=== PATIENT | female | born 1940 | race Caucasian/White ===

== ENCOUNTER 2016-08-11 22:11 | Emergency (ER) | payer MEDICARE, OTHER ==
[2016-08-11] MEDS ORDERED: Ondansetron INJ* 2 MG/ML VIAL IV ONE (22:54)
[2016-08-11] MEDS ORDERED: NS 0.9% 1000 ML* 1,000 ML IV ONE (22:54)
[2016-08-11] MEDS ORDERED: methylPREDNISolone 125 MG* 2 ML VIAL IV ONE (22:54)
[2016-08-11] MEDS ORDERED: Albuterol/Ipratropium NEB.SOL* Albuterol 2.5 MG/Ipratropium 0.5 MG 3 ML INH ONE (22:55)
--- NOTE | 2016-08-11 23:17 | RAD ---
INDICATION: Syncope. COMPARISON: Comparison is made with a prior chest x-ray study from April 17, 2014. TECHNIQUE: A portable view of the chest was obtained. FINDINGS: Cardiac and mediastinal contours appear to be within normal limits. The lungs are clear. No pleural effusion is seen. IMPRESSION: NO EVIDENCE FOR ACUTE DISEASE.
--- NOTE | 2016-08-11 23:56 | ED ---
Candida Self Erika, scribed for Anamika Tomlin MD on 08/11/16 at 2255 . Syncope/Near Syncope - HPI Summary HPI Summary: Patient is a 76-year-old female presenting to the ED with a CC of syncopal episode today. She reports that she has had cold-like symptoms for 3 days, including chills, cough, chest congestion, and SOB. Yesterday, pt was seen at [facility], and was started on a Z pack. They did not do a flu swab at that time. This morning, pt developed worse SOB and cough, and developed lightheadedness and nausea. Pt treated symptoms with her albuterol inhaler. Tonight, pt was in bed and was experiencing restless leg, so she got up to get some medication. She developed worse lightheadedness, and then remembers waking up on the ground. She denies worse SOB before this episode. Pt denies head injury - she states she fell onto her back but did not hit her head. Pt denies abdominal pain and vomiting. Hx asthma, HTN. FHx PA. Pt lives alone, although her sister lives nearby, and does not smoke, drink, or use illicit drugs. PCP Dr. Bob. - History Of Current Complaint Chief Complaint: EDSyncope Time Seen by Provider: 08/11/16 22:32 Hx Obtained From: Patient, Family/[employer] - Sister Onset/Duration: Gradual Onset, Lasting Minutes, Resolved Timing: Constant Context: Unwitnessed, Loss Of Consciousness Activity At Onset: Exertion - walking Aggravating Factor(s): Position Change - supine to erect Alleviating Factor(s): Spontaneous Resolution Associated Signs And Symptoms: Lightheadedness - Allergies/Home Medications Allergies/Adverse Reactions: Allergies Allergy/AdvReac Type Severity Reaction Status Date / Time Bee Venom Allergy Severe Anaphylatic Verified 01/22/15 07:37 Shock Cefuroxime Allergy Intermediate Hives Verified 01/22/15 07:37 Chocolate Allergy Intermediate Hives Verified 01/22/15 07:37 Ciprofloxacin Allergy Intermediate Hives Verified 01/22/15 07:37 Diazepam [From Valium] Allergy Intermediate Hallucinati Verified 01/22/15 07:37 ons Diltiazem Allergy Intermediate Hives Verified 01/22/15 07:37 Ezetimibe [From Zetia] Allergy Intermediate Hives Verified 01/22/15 07:37 Niacin [From Niaspan] Allergy Intermediate Hives Verified 01/22/15 07:37 Pravastatin [From Pravachol] Allergy Intermediate Hives Verified 01/22/15 07:37 Valsartan [From Diovan] Allergy Intermediate Hives Verified 01/22/15 07:37 Wheat Bran Allergy Intermediate Hives Verified 01/22/15 07:37 almonds Allergy Anaphylatic Uncoded 08/11/16 22:22 Shock PMH/Surg Hx/FS Hx/Imm Hx Endocrine/Hematology History: Denies: Hx Diabetes, Hx Systemic Lupus Erythematosus, Hx Anemia Cardiovascular History: Reports: Hx Hypertension, Other Cardiovascular Problems/ Disorders - "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 Denies: Hx Jaundice History: Denies: Hx Dialysis, Hx Renal Disease Musculoskeletal History: Reports: Hx Arthritis, Hx Rheumatoid Arthritis, Hx Osteoporosis Sensory History: Reports: Hx Cataracts - surgery completed in October, Hx Contacts or Glasses Opthamlomology History: Reports: Hx Cataracts - surgery completed in October, Hx Contacts or Glasses - Cancer History Hx Chemotherapy: No Hx Radiation Therapy: No - Surgical History Surgery Procedure, Year, and Place: B hip replacement (december 2014). tonsillectomy (194). multiple wrist surgeries (2012) Infectious Disease History: No Infectious Disease History: Denies: Traveled Outside the [place] in Last 30 Days - Family History Known Family History: Positive: Cardiac Disease - [place] - brother - Social History Lives: Alone Alcohol Use: None Hx Substance Use: No Substance Use Type: Reports: None Hx Tobacco Use: Yes Smoking Status (MU): Former Smoker Have You Smoked in the Last Year: No Review of Systems Positive: Chills Cardiovascular: Other - chest congestion Positive: Shortness Of Breath, Cough Positive: Nausea. Negative: Vomiting Neurological: Other - lightheadedness Positive: Syncope All Other Systems Reviewed And Are Negative: Yes Physical Exam Triage Information Reviewed: Yes Vital Signs On Initial Exam: Initial Vitals Temp Pulse Resp BP Pulse Ox 96.7 F 64 16 112/60 100 08/11/16 22:22 08/11/16 22:22 08/11/16 22:22 08/11/16 22:22 08/11/16 22:22 Vital Signs Reviewed: Yes Appearance: Positive: Well-Appearing, No Pain Distress Skin: Positive: Warm, Skin Color Reflects Adequate Perfusion, Dry Eyes: Positive: EOMI, KAREN ENT: Positive: Pharynx normal, TMs normal Neck: Positive: Supple, Nontender Respiratory/Lung Sounds: Positive: Clear to Auscultation, Breath Sounds Present. Negative: Rales, Rhonchi, Wheezes Cardiovascular: Positive: RRR, Other - No gallops. Negative: Murmur, Rub Abdomen Description: Positive: Nontender, Soft, Other: - No rebound. Negative: Distended, Guarding Bowel Sounds: Positive: Present Musculoskeletal: Positive: Other - LARRY, no edema Neurological: Positive: Sensory/Motor Intact, Alert, Oriented to Person Place, Time, Other - CN II-XII intact Psychiatric: Positive: Affect/Mood Appropriate Diagnostics - Vital Signs Vital Signs Temp Pulse Resp BP Pulse Ox 08/11/16 22:22 96.7 F 64 16 112/60 100 - Laboratory Lab Statement: Any lab studies that have been ordered have been reviewed, and results considered in the medical decision making process. - Radiology CXR Xray Interpretation: No Acute Changes Radiology Interpretation Completed By: ED Physician, Radiologist - EKG 22:30 Cardiac Rate: NL - at 60 bpm EKG Rhythm: Sinus Rhythm EKG Interpretation: LVH. Atrial enlargement EKG Comparison: No Significant Change - from 11/27/2014 Course/Dx Course Of Treatment: pt awaiting labs, signed out to Dr. Rothman - Diagnoses Provider Diagnoses: Syncope Discharge - Discharge Plan Condition: Stable Disposition: OTHER Discharge Disposition Comment: Signed out to Dr. Rothman pending lab work Referrals: Dallas Bob MD [Primary Care Provider] - The documentation as recorded by the Candida trinidad Erika accurately reflects the service I personally performed and the decisions made by me, Anamika Tomlin MD.
[2016-08-12 00:21] LABS: Hematocrit 41 % (35-47); Hemoglobin 13.6 g/dl (12.0-16.0); Mean Corpuscular HGB Conc 34 g/dl (31-36); Mean Corpuscular Hemoglobin 31 pg (27-31); Mean Corpuscular Volume 92 fL (80-97); Mean Platelet Volume 8 um3 (7.4-10.4); Red Blood Count 4.42 10^6/ul (4.0-5.4); Red Cell Distribution Width 13 % (10.5-15); White Blood Count 2.6 10^3/ul (3.5-10.8)
[2016-08-12 00:28] LABS: Add Diff/Slide Review? Slide Review Added; Albumin 3.8 g/dL (3.2-5.2); BUN/Creatinine Ratio 18.7 (8-20); Calcium 8.8 mg/dL (8.6-10.3); Comments Flag Yes; EGFR African American 54.3 (>60); EGFR Non-African American 42.2 (>60); Globulin 2.9 g/dL (2-4); Magnesium 1.8 mg/dL (1.9-2.7); Total Bilirubin 0.4 mg/dL (0.2-1.0); Total Protein 6.7 g/dL (6.4-8.9)
[2016-08-12 00:30] LABS: Troponin I 0.01 ng/mL (<0.04)
[2016-08-12 00:40] LABS: Potassium 3.7 mmol/L (3.5-5.0)
[2016-08-12 01:01] LABS: TSH (Thyroid Stimulating Horm) 2.35 mcIU/mL (0.34-5.60)
[2016-08-12 01:27] VITALS: BP 125/70
--- NOTE | 2016-10-14 23:14 | ED ---
I, Luis Sampson, scribed for Juan J Rothman MD on 08/12/16 at 0123 . Progress - Progress Note Progress Note: Signout from Dr. Tomlin. Waiting for blood work results. Course/Dx - Diagnoses Provider Diagnoses: Influenza The documentation as recorded by the scribeAdrián Benjamin accurately reflects the service I personally performed and the decisions made by me, Juan J Rothman MD.
== END 2016-08-12 01:42 ==
LOC: ED 22:11
DX: R55 Syncope and collapse (principal); R05 Cough; R06.02 Shortness of breath; Z87.891 Personal history of nicotine dependence; R42 Dizziness and giddiness
CPT/HCPCS: 36415; 71010; 80053; 83605; 83735; 84443; 84484; 85025; 87502; 93005; 99284; A9270-GY; J2405; J2930

== ENCOUNTER 2019-05-09 19:39 | Inpatient (IN) | payer MEDICARE, OTHER ==
[2019-05-09 20:27] LABS: ABS Eosinophils 0.1 10^3/ul (0-0.6); ABS Lymphocytes 0.8 10^3/ul (1.0-4.8); ABS Monocytes 0.4 10^3/ul (0-0.8); ABS Neutrophils 4.6 10^3/ul (1.5-7.7); Eosinophil % 1.6 %; Hematocrit 41 % (35-47); Hemoglobin 13.8 g/dL (12.0-16.0); Lymphocyte % 13.2 %; Mean Corpuscular HGB Conc 34 g/dL (31-36); Mean Corpuscular Hemoglobin 33 pg (27-31); Mean Corpuscular Volume 97 fL (80-97); Mean Platelet Volume 7.4 fL (7.4-10.4); Platelet Count 216 10^3/uL (150-450); Red Blood Count 4.21 10^6 /uL (3.70-4.87); Red Cell Distribution Width 13 % (10-15)
[2019-05-09 20:47] LABS: Albumin 4.2 g/dL (3.2-5.2); Albumin/Globulin Ratio 1.7 (1-3); BUN/Creatinine Ratio 20.2 (8-20); Calcium 9.1 mg/dL (8.6-10.3); EGFR African American 48.1 (>60); EGFR Non-African American 39.8 (>60); Globulin 2.5 g/dL (2-4); Potassium 4.1 mmol/L (3.5-5.0); Total Bilirubin 0.5 mg/dL (0.2-1.0); Total Protein 6.7 g/dL (6.4-8.9); Troponin I 0.01 ng/mL (<0.04)
[2019-05-09 20:48] LABS: Activated Partial Thrombo Time 28.7 seconds (26.0-38.0); INR 0.9 (0.82-1.09)
--- NOTE | 2019-05-09 20:56 | ED ---
Neurological HPI - HPI Summary HPI Summary: Patient is an 78 y/o F presenting to the ED via EMS for a chief complaint of neurological deficit. Patient has sudden onset aphasia at approximately 14:20 on 05/09/19. Patient states she was asymptomatic before later going to [facility]. At that time, patient declined going to the ED. Patient states she has rectal bleeding, blood in the stool, and pallor. Patient denies taking blood thinners. - History of Current Complaint Chief Complaint: EDNeurologicalDeficit Stated Complaint: BLEEDING FROM RECTUM PER PT Time Seen by Provider: 05/09/19 19:54 Hx Obtained From: Patient Onset/Duration: Sudden Onset, Resolved Timing: Sudden Onset Onset Severity: Moderate Current Severity: Moderate Neurological Deficit Location: Facial - Aphasia Pain Intensity: 0 Pain Scale Used: 0-10 Numeric Character: Impaired Speech - Aphasia, Other: - Positive rectal bleeding, blood in stool, and pallor Aggravating: Nothing Alleviating: Nothing Associated Signs and Symptoms: Positive: Impaired Speech - Aphasia - Allergy/Home Medications Allergies/Adverse Reactions: Allergies Allergy/AdvReac Type Severity Reaction Status Date / Time bee venom protein (honey bee) Allergy Unknown Verified 05/09/19 20:21 Reaction Details cefuroxime Allergy Hives Verified 05/09/19 20:21 chocolate flavor Allergy Hives Verified 05/09/19 20:21 ciprofloxacin [From Cipro] Allergy Hives Verified 05/09/19 20:21 diazepam Allergy Hallucinati Verified 05/09/19 20:21 ons diltiazem Allergy Hives Verified 05/09/19 20:21 ezetimibe Allergy Hives Verified 05/09/19 20:21 niacin Allergy Hives Verified 05/09/19 20:23 pravastatin Allergy Hives Verified 05/09/19 20:23 valsartan Allergy Hives Verified 05/09/19 20:23 wheat Allergy Hives Verified 05/09/19 20:23 almonds Allergy Anaphylatic Uncoded 08/11/16 22:22 Shock Home Medications: Home Medications Albuterol inh POWDER (NF) [Proair Respiclick] 2 puff INH DAILY 05/09/19 [ History Confirmed 05/09/19] Aspirin EC TAB* [Ecotrin EC Low Dose 81 MG*] 81 mg PO DAILY 05/09/19 [History Confirmed 05/09/19] Magnesium Oxide TAB* [MagOx 400 TAB*] 400 mg PO DAILY 05/09/19 [History Confirmed 05/09/19] Metoprolol Succinate XL TAB* [Toprol XL TAB*] 50 mg PO BID 05/09/19 [History Confirmed 05/09/19] Omeprazole CAP (NF) [Prilosec CAP* 20 MG] 20 mg PO DAILY 05/09/19 [History Confirmed 05/09/19] Vitamin B Complex [Super B-50 Complex] 1 cap PO DAILY 05/09/19 [History Confirmed 05/09/19] amLODIPine TAB* [Norvasc 5 mg TAB*] 7.5 mg PO DAILY 05/09/19 [History Confirmed 05/09/19] PMH/Surg Hx/FS Hx/Imm Hx Previously Healthy: Yes Endocrine/Hematology History: Denies: Hx Diabetes, Hx Systemic Lupus Erythematosus, Hx Anemia Cardiovascular History: Reports: Hx Hypertension, Other Cardiovascular Problems/ Disorders - "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 Denies: Hx Jaundice History: Denies: Hx Dialysis, Hx Renal Disease Musculoskeletal History: Reports: Hx Arthritis, Hx Rheumatoid Arthritis, Hx Osteoporosis Sensory History: Reports: Hx Cataracts - surgery completed in October, Hx Contacts or Glasses Denies: Hx Legally Blind, Hx Deafness Opthamlomology History: Reports: Hx Cataracts - surgery completed in October, Hx Contacts or Glasses Denies: Hx Legally Blind EENT History: Denies: Hx Deafness - Cancer History Hx Chemotherapy: No Hx Radiation Therapy: No - Surgical History Surgical History: Yes Surgery Procedure, Year, and Place: B hip replacement (december 2014). tonsillectomy (1943). multiple wrist surgeries (2012) Infectious Disease History: No Infectious Disease History: Denies: Traveled Outside the [place] in Last 30 Days - Family History Known Family History: Positive: Cardiac Disease - [place] - brother Family History: Reviewed and Non-contributory - Social History Occupation: Retired Alcohol Use: None Alcohol Amount: approx 2-3 drinks daily Hx Substance Use: No Substance Use Type: Reports: None Hx Tobacco Use: Yes Smoking Status (MU): Former Smoker Have You Smoked in the Last Year: No Review of Systems Positive: Other - Positive pallor Positive: Other - Positive blood in stool and rectal bleeding Neurological: Other - Positive aphasia, resolved All Other Systems Reviewed And Are Negative: Yes Physical Exam - Summary Physical Exam Summary: Constitutional: Well-developed, Well-nourished, Alert. (-) Distressed Skin: Warm, Dry HENT: Normocephalic; Atraumatic Eyes: Conjunctiva normal Neck: Musculoskeletal ROM normal neck. (-) JVD, (-) Stridor, (-) Tracheal deviation Cardio: Rhythm regular, rate normal, Heart sounds normal; Intact distal pulses; Radial pulses are 2+ and symmetric. (-) Murmur Pulmonary/Chest wall: Effort normal. (-) Respiratory distress, (-) Wheezes, (-) Rales Abd: Soft, (-) tenderness, (-) Distension, (-) Guarding, (-) Rebound. No abdominal pain. Bedside ultrasound shows no AAA. Musculoskeletal: (-) Edema Lymph: (-) Cervical adenopathy Neuro: Alert, Oriented x3 Psych: Mood and affect Normal. Stroke Scale: 0. Triage Information Reviewed: Yes Vital Signs On Initial Exam: Initial Vitals Temp Pulse Resp BP Pulse Ox 96.9 F 90 20 196/97 100 05/09/19 19:41 05/09/19 19:41 05/09/19 19:41 05/09/19 19:41 05/09/19 19:41 Vital Signs Reviewed: Yes - Deshaun Coma Scale Best Eye Response: 4 - Spontaneous Best Motor Response: 6 - Obeys Commands Best Verbal Response: 5 - Oriented Coma Scale Total: 15 Procedures - Sedation Patient Received Moderate/Deep Sedation with Procedure: No Diagnostics - Vital Signs Vital Signs Temp Pulse Resp BP Pulse Ox 05/09/19 20:08 98 05/09/19 20:06 21 163/84 05/09/19 19:41 96.9 F 90 20 196/97 100 - Laboratory Lab Results: Lab Results 05/09/19 05/09/19 05/09/19 Range/Units 20:05 20:20 20:20 WBC 6.0 (3.5-10.8) 10^3/uL RBC 4.21 (3.70-4.87) 10^6 /uL Hgb 13.8 (12.0-16.0) g/dL Hct 41 (35-47) % MCV 97 (80-97) fL MCH 33 H (27-31) pg MCHC 34 (31-36) g/dL RDW 13 (10-15) % Plt Count 216 (150-450) 10^3/uL MPV 7.4 (7.4-10.4) fL Neut % (Auto) 77.7 % Lymph % (Auto) 13.2 % [place] % (Auto) 7.2 % Eos % (Auto) 1.6 % Baso % (Auto) 0.3 % Absolute Neuts (auto) 4.6 (1.5-7.7) 10^3/ul Absolute Lymphs (auto) 0.8 L (1.0-4.8) 10^3/ul Absolute Monos (auto) 0.4 (0-0.8) 10^3/ul Absolute Eos (auto) 0.1 (0-0.6) 10^3/ul Absolute Basos (auto) 0.0 (0-0.2) 10^3/ul Absolute Nucleated RBC 0.0 10^3/ul Nucleated RBC % 0.0 INR (Anticoag Therapy) 0.90 (0.82-1.09) APTT 28.7 (26.0-38.0) seconds Sodium (135-145) mmol/L Potassium (3.5-5.0) mmol/L Chloride (101-111) mmol/L Carbon Dioxide (22-32) mmol/L Anion Gap (2-11) mmol/L BUN (6-24) mg/dL Creatinine (0.51-0.95) mg/dL Est GFR ( Amer) (>60) Est GFR (Non-Af Amer) (>60) BUN/Creatinine Ratio (8-20) Glucose (70-100) mg/dL POC Glucose (mg/dL) 135 H (70-100) mg/dL Lactic Acid (0.5-2.0) mmol/L Calcium (8.6-10.3) mg/dL Total Bilirubin (0.2-1.0) mg/dL AST (13-39) U/L ALT (7-52) U/L Alkaline Phosphatase (34-104) U/L Troponin I (<0.04) ng/mL Total Protein (6.4-8.9) g/dL Albumin (3.2-5.2) g/dL Globulin (2-4) g/dL Albumin/Globulin Ratio (1-3) Triglycerides mg/dL Cholesterol mg/dL LDL Cholesterol mg/dL HDL Cholesterol mg/dL 05/09/19 05/09/19 Range/Units 20:20 20:20 WBC (3.5-10.8) 10^3/uL RBC (3.70-4.87) 10^6 /uL Hgb (12.0-16.0) g/dL Hct (35-47) % MCV (80-97) fL MCH (27-31) pg MCHC (31-36) g/dL RDW (10-15) % Plt Count (150-450) 10^3/uL MPV (7.4-10.4) fL Neut % (Auto) % Lymph % (Auto) % [place] % (Auto) % Eos % (Auto) % Baso % (Auto) % Absolute Neuts (auto) (1.5-7.7) 10^3/ul Absolute Lymphs (auto) (1.0-4.8) 10^3/ul Absolute Monos (auto) (0-0.8) 10^3/ul Absolute Eos (auto) (0-0.6) 10^3/ul Absolute Basos (auto) (0-0.2) 10^3/ul Absolute Nucleated RBC 10^3/ul Nucleated RBC % INR (Anticoag Therapy) (0.82-1.09) APTT (26.0-38.0) seconds Sodium 137 (135-145) mmol/L Potassium 4.1 (3.5-5.0) mmol/L Chloride 103 (101-111) mmol/L Carbon Dioxide 22 (22-32) mmol/L Anion Gap 12 H (2-11) mmol/L BUN 26 H (6-24) mg/dL Creatinine 1.29 H (0.51-0.95) mg/dL Est GFR ( Amer) 48.1 (>60) Est GFR (Non-Af Amer) 39.8 (>60) BUN/Creatinine Ratio 20.2 H (8-20) Glucose 179 H (70-100) mg/dL POC Glucose (mg/dL) (70-100) mg/dL Lactic Acid 1.5 (0.5-2.0) mmol/L Calcium 9.1 (8.6-10.3) mg/dL Total Bilirubin 0.50 (0.2-1.0) mg/dL AST 27 (13-39) U/L ALT 21 (7-52) U/L Alkaline Phosphatase 124 H (34-104) U/L Troponin I 0.01 (<0.04) ng/mL Total Protein 6.7 (6.4-8.9) g/dL Albumin 4.2 (3.2-5.2) g/dL Globulin 2.5 (2-4) g/dL Albumin/Globulin Ratio 1.7 (1-3) Triglycerides 146 mg/dL Cholesterol 254 mg/dL LDL Cholesterol 131 mg/dL HDL Cholesterol 94.0 mg/dL Result Diagrams: 05/10/19 06:13 05/10/19 06:13 Lab Statement: Any lab studies that have been ordered have been reviewed, and results considered in the medical decision making process. - CT Brain CT CT Interpretation Completed By: Radiologist Summary of CT Findings: Brain CT IMPRESSION: 1. No acute intracranial pathology. ASPECTS score 10. 2. Other chronic findings, as above. Reviewed by ED physician. - EKG 20:05 Cardiac Rate: NL - 76 BPM EKG Rhythm: Sinus Rhythm ST Segment: Normal Ectopy: None Summary of EKG Findings: EKG at 20:05 reveals 76 BPM with normal sinus rhythm, no STEMI. Reviewed and interpreted by ED physician. NIH Scale - NIH Scale Level of Consciousness: Alert/Keenly Responsive Ask Patient the Month and His/Her Age: Both Correct Ask Pt to Open/Close Eyes and Process Consultant/Release Non-Paretic Hand: Both Correctly Best Gaze (Only Horizontal Eye Movement): Normal Visual Field Testing: No Visual Loss Facial Paresis-Pt to Smile & Close Eyes or Grimace Symmetry: Normal/Symmetrical Motor Function - Right Arm: No Drift-Holds 10 Seconds Motor Function - Left Arm: No Drift-Holds 10 Seconds Motor Function - Right Leg: No Drift-Holds 10 Seconds Motor Function - Left Leg: No Drift-Holds 10 Seconds Limb Ataxia-Must be out of Proportion to Weakness Present: Absent Sensory (Use Pinprick to Test Arms/Legs/Trunk/Face): Normal Best Language (Describe Picture, Name Items): No Aphasia Dysarthria (Read Several Words): Normal Extinction and Inattention: No Abnormality Total Score: 0 Re-Evaluation - Re-Evaluation First Re-Evaluation Time: 20:58 Change: Unchanged Comment: At 20:58, patient is debating on staying because she has animals at home. Giving the patient time to think about it, will come back later and reassess. Course/Dx - Course Course Of Treatment: Patient is here with a GI bleed. Patient had an episode of aphasia at 1420 so a code cox was called from triage. Patient had [place] 0 upon my exam did have a negative CT head. Patient blood performed which showed no evidence of anemia. Patient did have melena on exam. Given her GI complaint, patient was admitted hospital - Diagnoses Provider Diagnoses: Chest pain During the Visit The Following Alert/Code Occurred: Code [place] - At 19:50, CODE [place] IS CALLED. At 19:51, I assessed the patient. At 19:53, patient is taken to CT. - Physician Notifications Discussed Care Of Patient With: Cherelle Hilton - At 21:30, Dr. Hilton accepts the patient for admission to [facility] for a diagnosis of chest pain. Time Discussed With Above Provider: 21:30 Instructed by Provider To: Admit As Inpatient - Critical Care Time Critical Care Time: 30-74 min - 35 min Discharge ED - Sign-Out/Discharge Documenting (check all that apply): Patient Departure - Admit - Discharge Plan Condition: Stable Disposition: ADMITTED TO [facility] - Billing Disposition and Condition Condition: STABLE Disposition: Admitted to [facility] - Attestation Statements Document Initiated by Eunice: Yes Documenting Scribe: Ayaka Olivas Provider For Whom Eunice is Documenting (Include Credential): Julien Hall MD Scribe Attestation: Ayaka Self, scribed for Julien Hall MD on 05/10/19 at 1203. Scribe Documentation Reviewed: Yes Provider Attestation: The documentation as recorded by the Ayaka trinidad accurately reflects the service I personally performed and the decisions made by , Julien Hall MD Status of Scribe Document: Viewed
[2019-05-09] MEDS ORDERED: Pantoprazole IV* 40 MG IV ONE (21:11)
[2019-05-09] MEDS ORDERED: NS 0.9% 1000 ML** 1,000 ML IV ONE (21:30)
[2019-05-09 22:45] LABS: Urine Appearance Clear; Urine Bilirubin Negative (Negative); Urine Blood Negative (Negative); Urine Color Straw; Urine Glucose Negative (Negative); Urine Ketones Negative (Negative); Urine Nitrite Negative (Negative); Urine Protein Negative (Negative); Urine Specific Gravity 1.004 (1.010-1.030); Urine Urobilinogen Negative (Negative)
[2019-05-09] MEDS ORDERED: Ondansetron INJ* 2 MG/ML VIAL IV PRN (23:27)
[2019-05-09] MEDS ORDERED: NS 0.9% 1000 ML** 1,000 ML IV SCH (23:30)
[2019-05-10] MEDS ORDERED: Albuterol HFA INHALER* 8 gm MDI INH PRN (03:00)
--- NOTE | 2019-05-10 05:24 | HP ---
CC: Dr. Dallas Bob ADMISSION HISTORY AND PHYSICAL: DATE OF ADMISSION: 05/09/19 PRIMARY CARE PHYSICIAN: Dallas Bob MD. CHIEF COMPLAINT: Bloody bowel movement and altered mental status. HISTORY OF PRESENT ILLNESS: This is an 78-year-old female with past medical history of asthma, hyper tension, previously admitted in 2015 for bloody bowel movement and diarrhea, who was in her usual sta te of health up until a few days ago when she was having some diarrhea. She took some Imodium at [facility] and her symptoms resolved, and this morning when she went to [facility], she started straini ng to have a bowel movement, after which when she was leaving the bathroom and was at the sink, she f elt severely weak, was almost about to fall, but another person who was in the bathroom was able to c atch her and the senior group that took the patient to [facility] came and helped her and placed her in a wheelchair. The patient was apparently very weak, had generalized weakness, could not support her body weight and was confused, was unable to speak for roughly 15 minutes, after which all her sym ptoms resolved. The ambulance arrived within the 15- to 20-minute range. She was initially minimall y confused, stating that she was giving her sister's birthday whom she helps take care of instead of her own birthday, but then corrected herself and within a few minutes was completely back to her norm al, had regained her strength, and even though the EMS was ready to take her, she refused to go with the EMS. She was later dropped off by the bus back to [facility], where she took her car back i nto her house, at which point when she was in her house, she noticed having bloody bowel movements wh en she decided to come to the ER. Given her symptoms, a code brooke was called; however, the patient's neurological symptoms had completely resolved by the time she arrived to the ER. She at this point d enies any chest pain, shortness of breath, any numbness, tingling, or any weakness. Her main symptom was the bloody bowel movement and some minimal abdominal tenderness, but no nausea at this point and no vomiting. PAST MEDICAL HISTORY: 1. History of asthma. 2. Hypertension. 3. Rheumatoid arthritis. 4. Osteoarthritis. 5. Thyroid nodule. 6. She did have some bleeding disorders, especially if she takes aspirin on a regular basis, so she is currently taking low-dose aspirin every 3 days if she ever does. 7. Colonoscopy from 2015 suggested the patient does have history of diverticulosis along with ischem ic colitis. 8. History of depression. PAST SURGICAL HISTORY: 1. She has had a right hip replacement and subsequently has minimal edema on the right lower extremi ty. 2. Multiple bilateral wrist surgeries for ganglion cysts from her rheumatoid. 3. History of tonsillectomy. HOME MEDICATIONS: Currently, on: 1. Vitamin B complex 1 tablet oral daily. 2. Ecotrin 81 mg, which she takes intermittently, last use was many days ago. 3. Vitamin D 800 units oral daily. 4. Citracal with vitamin D 1 tablet oral daily. 5. Multivitamins 1 tablet oral daily. 6. Magnesium oxide 400 mg oral daily. 7. Amlodipine 7.5 mg oral daily. 8. ProAir 2 puffs by inhalation daily. 9. Omeprazole 20 mg oral daily. 10. Metoprolol succinate 50 mg p.o. b.i.d. 11. Aldactone 25 mg oral daily. 12. Ramipril 10 mg oral daily. 13. Amoxapine 25 mg oral daily. ALLERGIES: History of BEE STING allergy, which required allergy shots. Currently, has not had any a naphylactic reactions with bees. History of hives to CEFUROXIME, chocolate flavor, CIPROFLOXACIN, DI LTIAZEM, EZETIMIBE, NIACIN, PRAVASTATIN, VALSARTAN, and wheat and hallucinations with DIAZEPAM and al monds cause anaphylactic shock. FAMILY HISTORY: Noncontributory at her age of 78. SOCIAL HISTORY: She denies any smoking, alcohol, or drug use. She lives alone and states her sister is her healthcare proxy. Her sister lives about 5 houses down; she is 97 years old and she does hel p take care of her. She is currently thinking about changing her healthcare proxy to her best friend , but has not asked her yet and currently, regarding code status, she is still thinking about it for now. She wants to be full code. REVIEW OF SYSTEMS: A 14-point review of systems did not reveal any new information, other than what is mentioned in the HPI. PHYSICAL EXAMINATION GENERAL: The patient is awake, alert, and oriented x3, did not appear to be in any acute respiratory distress. VITAL SIGNS: Temperature recorded to be 97.9, BP was noted to be 132/67, heart rate 81, respiration rate 20, saturating 95% on room air. HEAD AND NECK: Atraumatic, normocephalic. Bilateral pupils are reactive. Oral mucosa was moist. N rod supple. No jugular venous distention. LUNGS: Clear to auscultation bilaterally. No wheezing, rhonchi, or rales. HEART: S1, S2. Regular rate and rhythm. ABDOMEN: Soft. Minimally tender. Nondistended with normoactive bowel sounds. EXTREMITIES: The patient has some trace edema on the right lower extremity. NEURO: As mentioned, alert, awake, oriented to time; place; and person. Strength on all 4 extremiti es was noted to be 5/5. General sensation was noted to be intact and there was no facial asymmetry n oted. DIAGNOSTIC STUDIES/LAB DATA: Labs: CBC was unremarkable. Coagulation profile unremarkable. Compr ehensive metabolic panel was showing elevated BUN at 26, creatinine elevated at 1.29, current glucose was noted to be 179. LDL was noted to be 131. Urinalysis was negative for any leuk esterase or nit rite. CT brain showed no acute intracranial pathology, ASPECTS 4/10. Other chronic findings including mild prominence in the ventricles and sulci, most likely attributed to parenchymal volume loss and minima l nonspecific hypodensities of the periventricular and deep subcortical white matter, most likely sec ondary to chronic small-vessel ischemic changes. EKG showed sinus rhythm at 76 beats per minute without any ST elevation. When compared to her older EKG from 2017, there is no real change in the waveform. Portable chest x-ray showed clear lung sidhu. No obvious infiltrates or any congestion. Official r adiology report is still pending. IMPRESSION: This is an 78-year-old female with multiple past medical histories including previous hi story of gastrointestinal bleed secondary to diverticulosis and with a history of ischemic colitis, h ypertension, asthma, dyslipidemia, here due to symptoms of transient ischemic attack and later on wit h gastrointestinal bleed. ASSESSMENT AND PLAN: 1. Transient ischemic attack, likely secondary to bleeding versus straining in the [place] facil ity, currently resolved. We will get an echocardiogram and carotid duplex in the morning. We will d o neurological checks, but no aspirin in light of her bleeding. 2. Gastrointestinal bleed, likely another recurrence of diverticular bleed. We will keep her n.p.o. and start the patient on IV Protonix and we will consider GI consultation in the morning to evaluate the patient and see if the patient would benefit from an EGD versus colonoscopy. We will also repea t CBC in the morning to see if there is any drop in her hemoglobin. Her baseline hemoglobin from 201 8 was noted to 14.3, which is similar to what she had today. 3. Acute kidney injury, likely secondary to dehydration from gastrointestinal bleed. We will start the patient on IV hydration and repeat labs in the morning. 4. History of dyslipidemia with elevated LDL today. However, the patient is allergic to multiple ch olesterol medications including STATINS, NIACIN, and EZETIMIBE, so unable to start any anticholestero l agent. Could consider fish oil. 5. History of hypertension. Restart on medications, with the exception of spironolactone in light o f her kidney injury. 6. History of depression. Restart her amoxapine. 7. History of gastroesophageal reflux disease. On Protonix for now. 8. History of asthma. Restart her ProAir. 9. History of rheumatoid arthritis and osteoarthritis. Currently, stable. 10. DVT prophylaxis with sequential compression device. 11. Code status. Full code with currently her sister being the surrogate decision maker, which she will work on changing to her best friend in the near future once she is done asking her friend. [id number]/CPS #: [id number]
[2019-05-10 06:47] LABS: ABS Eosinophils 0.1 10^3/ul (0-0.6); ABS Lymphocytes 0.7 10^3/ul (1.0-4.8); ABS Monocytes 0.4 10^3/ul (0-0.8); ABS Neutrophils 4.3 10^3/ul (1.5-7.7); Eosinophil % 2.2 %; Hematocrit 39 % (35-47); Hemoglobin 13.1 g/dL (12.0-16.0); Mean Corpuscular HGB Conc 34 g/dL (31-36); Mean Corpuscular Hemoglobin 33 pg (27-31); Mean Corpuscular Volume 96 fL (80-97); Mean Platelet Volume 7.8 fL (7.4-10.4); Nucleated Red Blood Cells % 0.1; Platelet Count 189 10^3/uL (150-450); Red Blood Count 4.02 10^6 /uL (3.70-4.87); Red Cell Distribution Width 14 % (10-15); White Blood Count 5.6 10^3/uL (3.5-10.8)
[2019-05-10 07:01] LABS: BUN/Creatinine Ratio 19.1 (8-20); Calcium 8.8 mg/dL (8.6-10.3); EGFR African American 69.3 (>60); EGFR Non-African American 57.3 (>60)
[2019-05-10] MEDS ORDERED: NS 0.9% 1000 ML** 1,000 ML IV SCH (08:21)
[2019-05-10] MEDS: Acetaminophen TAB* 325 MG PO PRN (08:57)
[2019-05-10] MEDS: Cholecalciferol TAB* 400 UNIT PO SCH (09:16)
[2019-05-10] MEDS: Magnesium Oxide TAB* 400 MG PO SCH (09:16)
[2019-05-10] MEDS: amLODIPine TAB* 5 MG PO SCH (09:17)
[2019-05-10] MEDS: Calcium/Vitamin D TAB 250/125* TAB PO SCH (09:18)
[2019-05-10] MEDS: Multivitamins/Minerals TAB PO SCH (09:18)
[2019-05-10] MEDS: Ramipril CAP* 10 MG PO SCH (09:18)
[2019-05-10] MEDS: Metoprolol Succinate XL TAB* 50 MG PO SCH ×2 (09:18→20:56)
[2019-05-10] MEDS: Vitamin B Complex TAB PO SCH (09:19)
[2019-05-10] MEDS: Pantoprazole IV* 40 MG IV SCH ×2 (09:19→21:06)
[2019-05-10] MEDS: AMOXAPINE PO SCH (09:22)
--- NOTE | 2019-05-10 12:01 | ECHO ---
*[facility]* [place] [address] Fax #: [phone] Transthoracic Echocardiogram Patient: Jeanie Fernández : 1940 Study Date: 05/10/2019 Age: 78 Gender: F HR: 82 bpm Height: 63 in /160 cm BSA: 1.55 m^2 Weight: 118.8 lb /54 kg BMI: 21.1 kg/m^2 *Cash Applications Coordinator: * Ayaka Powers [facility] *Referring Physician: * Mayo Hilton *Reading Physician: * Rafi Zaragoza MD Indications: TIA. History: Rheumatoid arthritis,GERD,asthma. Risk factors: Hypertension. Conclusions Summary: - Left ventricle: The cavity size is normal. Wall thickness is mildly increased. Systolic function is normal. The estimated ejection fraction is 70-75%. Wall motion is normal; there are no regional wall motion abnormalities. - Right ventricle: The cavity size is normal. Systolic function is normal. - Left atrium: The atrium is mildly dilated. - Atrial septum: Bubble study was negative - No significant valvular abnormalities noted Study data: Transthoracic echocardiogram. Procedure: Transthoracic echocardiography was performed. Image quality was good. Intravenous agitated saline was administered. A bubble study was performed. Complete 2D, spectral Doppler, and color flow Doppler. Patient room number: 447-2. Rhythm: Normal sinus rhythm. Findings Left ventricle: The cavity size is normal. Wall thickness is mildly increased. Systolic function is normal. The estimated ejection fraction is 70-75%. Wall motion is normal; there are no regional wall motion abnormalities. Doppler parameters are consistent with abnormal left ventricular relaxation (grade 1 diastolic dysfunction). Right ventricle: Well visualized. The cavity size is normal. Systolic function is normal. Ventricular septum: Well visualized. The ventricular septum is normal. Left atrium: Well visualized. The atrium is mildly dilated. Right atrium: Well visualized. The atrium is normal in size. Atrial septum: Well visualized. No defect or patent foramen ovale is identified. Bubble study was negative Mitral valve: Well visualized. The leaflets are mildly thickened. No echocardiographic evidence for prolapse. There is no evidence of stenosis. There is trace regurgitation. Aortic valve: Well visualized. The valve is trileaflet. The leaflets are normal thickness. There is no evidence of stenosis. There is no significant regurgitation. Tricuspid valve: Well visualized. The leaflets are normal thickness. There is no evidence of stenosis. There is mild regurgitation. Pulmonic valve: Well visualized. The leaflets are normal thickness. There is no evidence of stenosis. There is no significant regurgitation. Aorta: The aorta is well visualized and normal size. The aortic root appears normal. The aortic arch appears normal. Pericardium: There is no pericardial effusion. Pulmonary arteries: Well visualized. Systolic pressure is within the normal range. Systemic veins: Well visualized. Inferior vena cava: The vessel is normal in size. There is (>= 50%) respiratory change in the IVC dimension. Pulmonary veins: Well visualized. The Pulmonary veins appear normal. Measurements Left ventricle Value Ref Aortic valve Value Ref CHIQUI, LAX 3.9 cm 3.8 - Enrique diam, ED 1.9 cm ----- 5.2 Peak v, S 1.21 m/sec ----- ESD, LAX 3.3 cm 2.2 - VTI, S 26.5 cm ----- 3.5 Mean grad, S 3.0 mm Hg ----- FS, LAX (L) 14 % 27 - 45 Peak grad, S 6.0 mm Hg ----- PW, ED, LAX (H) 1.0 cm 0.6 - LVOT/AV, VTI ratio 0.8 ----- 0.9 FS (L) 14 % 27 - 45 Mitral valve Value Ref PW, ED (H) 1.0 cm 0.6 - Peak E 0.95 m/sec ----- 0.9 Peak A 0.8 m/sec ----- PW/ID, ED 0.26 -------- Decel time 162 ms ----- E', lat enrique, TDI (L) 9.4 cm/sec >=10.0 Peak grad, D 3.6 mm Hg -- --- E/e', lat enrique, TDI 10 -------- Peak E/A ratio 1.2 ----- E', med enrique, TDI (L) 6.8 cm/sec >=7.0 E/e', med enrique, TDI 14 -------- Pulmonic valve Value Ref E', avg, TDI 8.1 cm/sec -------- Peak v, S 1.02 m/sec ----- E/e', avg, TDI 12 <=14 Peak grad, S 4.0 mm Hg -- --- LVOT Value Ref Tricuspid valve Value Ref Peak thao, S 0.92 m/sec -------- TR peak v 2.63 m/sec <=2.8 VTI, S 21.3 cm -------- Peak RV-RA grad, S 28 mm Hg ----- Mean grad, S 2 mm Hg -------- Max TR thao 2.6 m/sec ----- Ventricular septum Value Ref Aortic root Value Ref IVS, ED 0.8 cm 0.6 - Root diam 2.8 cm <3.8 0.9 Root max diam, ED 2.8 cm <3.8 Right ventricle Value Ref Aortic arch Value Ref CHIQUI, LAX 2.8 cm -------- Arch diam 2.5 cm ----- CHIQUI minor ax, A4C 2.9 cm 1.9 - mid 3.5 Decending aorta Value Ref Raoul peak thao 0.67 m/sec ----- Left atrium Value Ref ML dim, A4C 4.2 cm -------- Inferior vena cava Value Ref SI dim, A4C 5.9 cm -------- Diam 1.3 cm ----- Vol/bsa, ES, 1-p (H) 42 ml/m^2 11 - 40 A4C Right atrium Value Ref SI dim, ES 5.1 cm 3.4 - 5.3 ML dim, ES, A4C 3.9 cm 2.6 - 4.4 SI dim, ES, A4C 5.1 cm 3.4 - 5.3 Estimated RAP 3 mm Hg -------- Legend: (L) and (H) stephanie values outside specified reference range. Prepared and electronically signed by Rafi Zaragoza MD 05/10/2019 12:01
[2019-05-10] MEDS ORDERED: Midazolam* 1 MG/ML 10 ML VIAL (10 MG) ONE (13:32)
[2019-05-10] MEDS ORDERED: fentaNYL* 50 MCG/ML 2 ML VIAL (100 MCG VIAL) ONE (13:32)
--- NOTE | 2019-05-10 15:05 | PN ---
Progress Note - Progress Note Date of Service: 05/10/19 Note: GI Flex Sig Note: Flex sig to distal transverse Ischemic colitis from 15-35cm Bx taken. Procedure done with minimal air insufflation. Abd soft at conclusion of procedure Rec: IVF (aggressive) oral liquids ok Zosyn 3.37 q6 CTA abd/pelvis r/o vascular lesion Aggressive work up to r/o arrhythmia/embolic source given potential TIA will need outpatient colonoscopy in 4-6 weeks after discharge. eSven Medley DO 05/10/19 1500
[2019-05-10] MEDS ORDERED: Iodixanol* (CONTRAST) 320 MG/ML 100 ML SDV IV ONE (15:18)
--- NOTE | 2019-05-10 15:52 | PN ---
Subjective Date of Service: 05/10/19 Interval History: Pt c/o minimal discomfort in RLQ Objective Active Medications: Acetaminophen (Tylenol Tab*) 650 mg PO Q4H PRN PRN Reason: PAIN - MILD Last Admin: 05/10/19 08:57 Dose: 650 mg Albuterol (Ventolin Hfa Inhaler*) 2 puff INH Q4H PRN PRN Reason: SHORTNESS OF BREATH Amlodipine Besylate (Norvasc Tab*) 7.5 mg PO DAILY [facility] Last Admin: 05/10/19 09:17 Dose: 7.5 mg Calcium/Vitamin D (Oscal D Tab 250/125*) 1 tab PO DAILY [facility] Last Admin: 05/10/19 09:18 Dose: 1 tab Cholecalciferol (Vitamin D Tab*) 800 unit PO DAILY [facility] Last Admin: 05/10/19 09:16 Dose: 800 unit Piperacillin Sod/Tazobactam (Sod 3.375 gm/ Sodium Chloride) 100 mls @ 200 mls/ hr IVPB ONCE ONE Stop: 05/10/19 16:29 Last Admin: 05/10/19 15:42 Dose: 200 mls/hr Sodium Chloride (Ns 0.9% 1000 Ml) 1,000 mls @ 150 mls/hr IV PER RATE [facility] Magnesium Oxide (Magox 400 Tab*) 400 mg PO DAILY [facility] Last Admin: 05/10/19 09:16 Dose: 400 mg Metoprolol Succinate (Toprol Xl Tab*) 50 mg PO BID [facility] Last Admin: 05/10/19 09:18 Dose: 50 mg Multivitamins/Minerals (Theragran/Minerals Tab*) 1 tab PO DAILY [facility] Last Admin: 05/10/19 09:18 Dose: 1 tab [Amoxapine] 25 Mg 25 mg PO DAILY [facility] Last Admin: 05/10/19 09:22 Dose: Not Given Ondansetron HCl (Zofran Inj*) 4 mg IV Q4H PRN PRN Reason: NAUSEA/VOMITING Pantoprazole Sodium (Protonix Iv*) 40 mg IV Q12HR [facility] Last Admin: 05/10/19 09:19 Dose: 40 mg Pharmacy Consult (Zosyn Per Pharmacy*) 1 note FOLLOW UP .ZOSYN PER PHARMACY [facility] Ramipril (Altace Cap*) 10 mg PO DAILY [facility] Last Admin: 05/10/19 09:18 Dose: 10 mg Vitamin B Complex/Vitamin E (B Complex-50*) 1 tab PO DAILY [facility] Last Admin: 05/10/19 09:19 Dose: 1 tab Vital Signs - 8 hr 05/10/19 05/10/19 05/10/19 08:00 12:00 15:26 Temperature 97.6 F 98.2 F 98.2 F Pulse Rate 87 95 80 Respiratory 16 20 20 Rate Blood Pressure 139/72 160/82 157/74 (mmHg) O2 Sat by Pulse 100 100 100 Oximetry Oxygen Devices in Use Now: None Appearance: 78 yo F in nAD, aAOx3 Eyes: No Scleral Icterus, PERRLA Ears/Nose/Mouth/Throat: NL Teeth, Lips, Gums, Mucous Membranes Moist Neck: NL Appearance and Movements; NL JVP, Trachea Midline Respiratory: Symmetrical Chest Expansion and Respiratory Effort, Clear to Auscultation Cardiovascular: NL Sounds; No Murmurs; No JVD Abdominal: - - mild tenderess in RLQ, no rebound, no guarding BS+ Extremities: No Edema, No Clubbing, Cyanosis Skin: No Rash or Ulcers, No Nodules or Sclerosis Neurological: Alert and Oriented x 3, NL Muscle Strength and Tone Result Diagrams: 05/10/19 06:13 05/10/19 06:13 Additional Lab and Data: Lab Results 05/09/19 05/09/19 05/09/19 Range/Units 20:05 20:20 20:20 WBC 6.0 (3.5-10.8) 10^3/uL RBC 4.21 (3.70-4.87) 10^6 /uL Hgb 13.8 (12.0-16.0) g/dL Hct 41 (35-47) % MCV 97 (80-97) fL MCH 33 H (27-31) pg MCHC 34 (31-36) g/dL RDW 13 (10-15) % Plt Count 216 (150-450) 10^3/uL MPV 7.4 (7.4-10.4) fL Neut % (Auto) 77.7 % Lymph % (Auto) 13.2 % Ector % (Auto) 7.2 % Eos % (Auto) 1.6 % Baso % (Auto) 0.3 % Absolute Neuts (auto) 4.6 (1.5-7.7) 10^3/ul Absolute Lymphs (auto) 0.8 L (1.0-4.8) 10^3/ul Absolute Monos (auto) 0.4 (0-0.8) 10^3/ul Absolute Eos (auto) 0.1 (0-0.6) 10^3/ul Absolute Basos (auto) 0.0 (0-0.2) 10^3/ul Absolute Nucleated RBC 0.0 10^3/ul Nucleated RBC % 0.0 INR (Anticoag Therapy) 0.90 (0.82-1.09) APTT 28.7 (26.0-38.0) seconds Sodium (135-145) mmol/L Potassium (3.5-5.0) mmol/L Chloride (101-111) mmol/L Carbon Dioxide (22-32) mmol/L Anion Gap (2-11) mmol/L BUN (6-24) mg/dL Creatinine (0.51-0.95) mg/dL Est GFR ( Amer) (>60) Est GFR (Non-Af Amer) (>60) BUN/Creatinine Ratio (8-20) Glucose (70-100) mg/dL POC Glucose (mg/dL) 135 H (70-100) mg/dL Lactic Acid (0.5-2.0) mmol/L Calcium (8.6-10.3) mg/dL Total Bilirubin (0.2-1.0) mg/dL AST (13-39) U/L ALT (7-52) U/L Alkaline Phosphatase (34-104) U/L Troponin I (<0.04) ng/mL Total Protein (6.4-8.9) g/dL Albumin (3.2-5.2) g/dL Globulin (2-4) g/dL Albumin/Globulin Ratio (1-3) Triglycerides mg/dL Cholesterol mg/dL LDL Cholesterol mg/dL HDL Cholesterol mg/dL 05/09/19 05/09/19 Range/Units 20:20 20:20 WBC (3.5-10.8) 10^3/uL RBC (3.70-4.87) 10^6 /uL Hgb (12.0-16.0) g/dL Hct (35-47) % MCV (80-97) fL MCH (27-31) pg MCHC (31-36) g/dL RDW (10-15) % Plt Count (150-450) 10^3/uL MPV (7.4-10.4) fL Neut % (Auto) % Lymph % (Auto) % Ector % (Auto) % Eos % (Auto) % Baso % (Auto) % Absolute Neuts (auto) (1.5-7.7) 10^3/ul Absolute Lymphs (auto) (1.0-4.8) 10^3/ul Absolute Monos (auto) (0-0.8) 10^3/ul Absolute Eos (auto) (0-0.6) 10^3/ul Absolute Basos (auto) (0-0.2) 10^3/ul Absolute Nucleated RBC 10^3/ul Nucleated RBC % INR (Anticoag Therapy) (0.82-1.09) APTT (26.0-38.0) seconds Sodium 137 (135-145) mmol/L Potassium 4.1 (3.5-5.0) mmol/L Chloride 103 (101-111) mmol/L Carbon Dioxide 22 (22-32) mmol/L Anion Gap 12 H (2-11) mmol/L BUN 26 H (6-24) mg/dL Creatinine 1.29 H (0.51-0.95) mg/dL Est GFR ( Amer) 48.1 (>60) Est GFR (Non-Af Amer) 39.8 (>60) BUN/Creatinine Ratio 20.2 H (8-20) Glucose 179 H (70-100) mg/dL POC Glucose (mg/dL) (70-100) mg/dL Lactic Acid 1.5 (0.5-2.0) mmol/L Calcium 9.1 (8.6-10.3) mg/dL Total Bilirubin 0.50 (0.2-1.0) mg/dL AST 27 (13-39) U/L ALT 21 (7-52) U/L Alkaline Phosphatase 124 H (34-104) U/L Troponin I 0.01 (<0.04) ng/mL Total Protein 6.7 (6.4-8.9) g/dL Albumin 4.2 (3.2-5.2) g/dL Globulin 2.5 (2-4) g/dL Albumin/Globulin Ratio 1.7 (1-3) Triglycerides 146 mg/dL Cholesterol 254 mg/dL LDL Cholesterol 131 mg/dL HDL Cholesterol 94.0 mg/dL Microbiology and Other Data: Microbiology 05/09/19 20:30 Stool Occult Blood (PAULINA) - Final Stool Assess/Plan/Problems-Billing Assessment: 78 yo f with h/o ischemic colitis in 2012 and 2014 presents with AMS -transient(? near syncope) and BRBPR-colonoscopy shows severe ischemic colitis - Patient Problems (1) Altered mental state Comment: transient: TIA vs near syncope Cont Telem Echo shows EF 70%, negative bubble Carotid US shwos no significant stensosis suspect pt's symptoms were near syncope related (2) Ischemic colitis Comment: d/c Dr. Medley: CTA abd ordered -increasing IVF to 150 ml/hr -cont Zosyn started by GI and cont on PO antibiotics afterwards to complete 10 day course (3) HTN (hypertension) Comment: -cont Norvasc, lopressor, ramipril -mild permissive HTN OK (4) Acute lower GI bleeding Current Visit: Yes Comment: due to ischemic colitis cont to monitor CBC daily So far Hb fairly stable cont IV Protonix Q12H for now (5) LUCIAN (acute kidney injury) Comment: resolved with IVF (6) DVT prophylaxis Comment: SCD's, no anticoagulants due to GI bleed Status and Disposition: inpatient
[2019-05-10] MEDS ORDERED: Zosyn per Pharmacy* NOTE FOLLOW UP SCH (16:00)
[2019-05-10] MEDS ORDERED: Piperacillin/Tazobac ADVAN(*) 3.375 GM in NS 0.9% 100 ML* 100 ML IVPB ONE (16:00)
[2019-05-10] MEDS: NS 0.9% 1000 ML** 1,000 ML IV SCH (20:57)
--- NOTE | 2019-05-10 20:57 | CONS ---
CC: Dr. Dallas Bob CONSULTATION REPORT: DATE OF CONSULT: 05/09/19 REQUESTING PHYSICIAN: Dr. Hilton and Dr. Bower. REASON FOR CONSULT: Hematochezia. HISTORY OF PRESENT ILLNESS: This is a very pleasant 78-year-old female with a past medical history o f asthma, hypertension, ischemic colitis, who presented to the emergency room with bloody diarrhea an d a near syncopal episode. She states she was in her usual state of health a few days ago when she s tarted to develop some loose stools, no black or blood in the stool at that point. She then went to [facility] on the morning of 05/09/19, was in the bathroom, was straining quite a bit and then notic ed a large amount of blood and had a near syncopal event. Apparently post episode, she had a little bit of confusion and she was brought to the emergency room for further evaluation. She had a similar episode with hematochezia back in 2014 and was found to have ischemic colitis of the left side of th e colon near the splenic flexure. Last full colonoscopy was in 2014, which showed diffuse diverticul ar disease. She does take a baby aspirin. 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 No n ausea or vomiting. Denies any melena. Denies any dysphagia or odynophagia. Denies typical reflux s ymptoms. Denies any weight gain or weight loss. Remainder of the 14-point review of systems is gross ly negative. PAST MEDICAL HISTORY: Asthma, hypertension, rheumatoid arthritis, osteoarthritis, thyroid nodule, co lonoscopy in 2014 with diverticulosis and previous flexible sigmoidoscopy with ischemic colitis, depr ession. PAST SURGICAL HISTORY: Tonsillectomy, bilateral wrist surgeries, right hip replacement. HOME MEDICATIONS: 1. Vitamin B1. 2. Aspirin. 3. Vitamin D. 4. Citracal with vitamin D. 5. Multivitamin. 6. Magnesium oxide. 7. Amlodipine. 8. ProAir. 9. Omeprazole. 10. Metoprolol. 11. Aldactone. 12. Ramipril. 13. Amoxapine. ALLERGIES: BEE STINGS, CEFUROXIME, chocolate, CIPRO, DILTIAZEM, ZETIA, NIACIN, PRAVASTATIN, VALSARTA N, wheat, DIAZEPAM, almond. FAMILY HISTORY: Denies any family history of colorectal cancer. SOCIAL HISTORY: Denies any smoking. Very rare alcohol use. She is taking care of her sister who is 97 years old and that has been quite stressful for her. REVIEW OF SYSTEMS: The remainder of the 14-point review of systems is grossly negative. PHYSICAL EXAMINATION: Vital Signs: Blood pressure is 139/72, pulse 87, respiratory rate 16, tempera ture is 97.6, she is 100% on room air. In general, alert and oriented x3, in no acute distress. PINEDA NT: Atraumatic, normocephalic. Pupils equal, round, reactive to light. Extraocular movements are in tact. Conjunctivae are pink. Sclerae anicteric. Cardiovascular: Regular rate and rhythm. S1, S2. Respiratory: Clear to auscultation bilaterally. Abdomen: Soft, nontender, nondistended. Bowel so unds positive. Extremities: No clubbing, no cyanosis, no edema. Psych: Appropriate mood and affec t. DIAGNOSTIC STUDIES/LAB DATA: Hemoglobin 13.1. INR 0.9. BUN is 18, creatinine is 0.94, glucose is 1 18. Alkaline phosphatase 124. ASSESSMENT AND PLAN: This is an 78-year-old female with a past medical history of ischemic colitis, presenting with hematochezia. 1. Hematochezia. Acute blood loss anemia. Still having ongoing red stool today, suspicion for dive rticular bleed versus reoccurrence of ischemic colitis; however, her blood pressure has not been low. Given the prodrome of her altered status after the syncopal episode, definitely would recommend con tinuing telemetry to evaluate for atrial fibrillation and embolic phenomena. We will plan on a flexi ble sigmoidoscopy today to evaluate for ischemic colitis and/or treatment of this hematochezia. I di scussed the risks, benefits, and alternatives with the patient and she would like to proceed. We antoinette l plan on doing this without sedation as to minimize hypotension. 2. History of ischemic colitis. We will plan flexible sigmoidoscopy, likely will need a full colono scopy pending results. [id number]/[facility] #: [id number]
[2019-05-10] MEDS: ZOSYN 3.375 GM Q8H per EXTENDED INFUSION IVPB SCH ×2 (21:06)
[2019-05-11] MEDS: ZOSYN 3.375 GM Q8H per EXTENDED INFUSION IVPB SCH ×6 (03:09→20:18)
[2019-05-11 06:31] LABS: Hematocrit 41 % (35-47); Hemoglobin 13.6 g/dL (12.0-16.0); Mean Corpuscular HGB Conc 33 g/dL (31-36); Mean Corpuscular Hemoglobin 32 pg (27-31); Mean Corpuscular Volume 98 fL (80-97); Mean Platelet Volume 7.4 fL (7.4-10.4); Platelet Count 162 10^3/uL (150-450); Red Cell Distribution Width 14 % (10-15); White Blood Count 5.6 10^3/uL (3.5-10.8)
[2019-05-11 06:44] LABS: BUN/Creatinine Ratio 12.5 (8-20); Calcium 8.5 mg/dL (8.6-10.3); EGFR African American 67.7 (>60); EGFR Non-African American 55.9 (>60); Magnesium 1.5 mg/dL (1.9-2.7); Potassium 4.1 mmol/L (3.5-5.0)
[2019-05-11] MEDS ORDERED: Magnesium Sulf 4 GM/100 ML IV* 4,000 MG/100 ML BAG IVPB ONE (08:27)
[2019-05-11] MEDS: Pantoprazole IV* 40 MG IV SCH ×2 (10:18→20:18)
[2019-05-11] MEDS: Metoprolol Succinate XL TAB* 50 MG PO SCH ×2 (10:19→20:18)
[2019-05-11] MEDS: Acetaminophen TAB* 325 MG PO PRN (10:21)
[2019-05-11] MEDS: Multivitamins/Minerals TAB PO SCH (10:21)
[2019-05-11] MEDS: Calcium/Vitamin D TAB 250/125* TAB PO SCH (10:21)
[2019-05-11] MEDS: Ramipril CAP* 10 MG PO SCH (10:21)
[2019-05-11] MEDS: Vitamin B Complex TAB PO SCH (10:21)
[2019-05-11] MEDS: Magnesium Oxide TAB* 400 MG PO SCH (10:21)
[2019-05-11] MEDS: amLODIPine TAB* 5 MG PO SCH (10:22)
[2019-05-11] MEDS: Cholecalciferol TAB* 400 UNIT PO SCH (10:38)
[2019-05-11] MEDS: AMOXAPINE PO SCH (10:49)
--- NOTE | 2019-05-11 15:30 | PN ---
Subjective Date of Service: 05/11/19 Interval History: Pt feels much better.Eduardo abd pain. Stool early in AM loose and bloody, but now black and semi formed Objective Active Medications: Acetaminophen (Tylenol Tab*) 650 mg PO Q4H PRN PRN Reason: PAIN - MILD Last Admin: 05/11/19 10:21 Dose: 650 mg Albuterol (Ventolin Hfa Inhaler*) 2 puff INH Q4H PRN PRN Reason: SHORTNESS OF BREATH Amlodipine Besylate (Norvasc Tab*) 7.5 mg PO DAILY [facility] Last Admin: 05/11/19 10:22 Dose: 7.5 mg Calcium/Vitamin D (Oscal D Tab 250/125*) 1 tab PO DAILY [facility] Last Admin: 05/11/19 10:21 Dose: 1 tab Cholecalciferol (Vitamin D Tab*) 800 unit PO DAILY [facility] Last Admin: 05/11/19 10:38 Dose: 800 unit Sodium Chloride (Ns 0.9% 1000 Ml) 1,000 mls @ 150 mls/hr IV PER RATE [facility] Last Admin: 05/10/19 20:57 Dose: 150 mls/hr Piperacillin Sod/Tazobactam (Sod 3.375 gm/ Sodium Chloride) 100 mls @ 25 mls/ hr IVPB Q8H [facility] Last Admin: 05/11/19 13:43 Dose: 25 mls/hr Magnesium Oxide (Magox 400 Tab*) 400 mg PO DAILY [facility] Last Admin: 05/11/19 10:21 Dose: 400 mg Metoprolol Succinate (Toprol Xl Tab*) 50 mg PO BID [facility] Last Admin: 05/11/19 10:19 Dose: 50 mg Multivitamins/Minerals (Theragran/Minerals Tab*) 1 tab PO DAILY [facility] Last Admin: 05/11/19 10:21 Dose: 1 tab [Amoxapine] 25 Mg 25 mg PO DAILY [facility] Last Admin: 05/11/19 10:49 Dose: Not Given Ondansetron HCl (Zofran Inj*) 4 mg IV Q4H PRN PRN Reason: NAUSEA/VOMITING Pantoprazole Sodium (Protonix Iv*) 40 mg IV Q12HR [facility] Last Admin: 05/11/19 10:18 Dose: 40 mg Pharmacy Consult (Zosyn Per Pharmacy*) 1 note FOLLOW UP .ZOSYN PER PHARMACY [facility] Ramipril (Altace Cap*) 10 mg PO DAILY [facility] Last Admin: 05/11/19 10:21 Dose: 10 mg Vitamin B Complex/Vitamin E (B Complex-50*) 1 tab PO DAILY [facility] Last Admin: 05/11/19 10:21 Dose: 1 tab Vital Signs - 8 hr 05/11/19 05/11/19 05/11/19 07:51 08:00 11:15 Temperature 98.4 F 98.0 F Pulse Rate 75 78 Respiratory 16 16 16 Rate Blood Pressure 139/63 136/77 (mmHg) O2 Sat by Pulse 100 100 98 Oximetry 05/11/19 11:16 Temperature 98 F Pulse Rate 78 Respiratory 16 Rate Blood Pressure 136/77 (mmHg) O2 Sat by Pulse 98 Oximetry Oxygen Devices in Use Now: None Appearance: 78 yo F in nAD, aAOx3 Eyes: No Scleral Icterus, PERRLA Ears/Nose/Mouth/Throat: NL Teeth, Lips, Gums, Mucous Membranes Moist Neck: NL Appearance and Movements; NL JVP, Trachea Midline Respiratory: Symmetrical Chest Expansion and Respiratory Effort, Clear to Auscultation Cardiovascular: NL Sounds; No Murmurs; No JVD, RRR Abdominal: NL Sounds; No Tenderness; No Distention Lymphatic: No Cervical Adenopathy Extremities: No Edema, No Clubbing, Cyanosis Skin: No Rash or Ulcers, No Nodules or Sclerosis Neurological: Alert and Oriented x 3, NL Muscle Strength and Tone Result Diagrams: 05/11/19 06:06 05/11/19 06:06 Additional Lab and Data: Lab Results 05/09/19 05/09/19 05/09/19 Range/Units 20:05 20:20 20:20 WBC 6.0 (3.5-10.8) 10^3/uL RBC 4.21 (3.70-4.87) 10^6 /uL Hgb 13.8 (12.0-16.0) g/dL Hct 41 (35-47) % MCV 97 (80-97) fL MCH 33 H (27-31) pg MCHC 34 (31-36) g/dL RDW 13 (10-15) % Plt Count 216 (150-450) 10^3/uL MPV 7.4 (7.4-10.4) fL Neut % (Auto) 77.7 % Lymph % (Auto) 13.2 % [place] % (Auto) 7.2 % Eos % (Auto) 1.6 % Baso % (Auto) 0.3 % Absolute Neuts (auto) 4.6 (1.5-7.7) 10^3/ul Absolute Lymphs (auto) 0.8 L (1.0-4.8) 10^3/ul Absolute Monos (auto) 0.4 (0-0.8) 10^3/ul Absolute Eos (auto) 0.1 (0-0.6) 10^3/ul Absolute Basos (auto) 0.0 (0-0.2) 10^3/ul Absolute Nucleated RBC 0.0 10^3/ul Nucleated RBC % 0.0 INR (Anticoag Therapy) 0.90 (0.82-1.09) APTT 28.7 (26.0-38.0) seconds Sodium (135-145) mmol/L Potassium (3.5-5.0) mmol/L Chloride (101-111) mmol/L Carbon Dioxide (22-32) mmol/L Anion Gap (2-11) mmol/L BUN (6-24) mg/dL Creatinine (0.51-0.95) mg/dL Est GFR ( Amer) (>60) Est GFR (Non-Af Amer) (>60) BUN/Creatinine Ratio (8-20) Glucose (70-100) mg/dL POC Glucose (mg/dL) 135 H (70-100) mg/dL Lactic Acid (0.5-2.0) mmol/L Calcium (8.6-10.3) mg/dL Total Bilirubin (0.2-1.0) mg/dL AST (13-39) U/L ALT (7-52) U/L Alkaline Phosphatase (34-104) U/L Troponin I (<0.04) ng/mL Total Protein (6.4-8.9) g/dL Albumin (3.2-5.2) g/dL Globulin (2-4) g/dL Albumin/Globulin Ratio (1-3) Triglycerides mg/dL Cholesterol mg/dL LDL Cholesterol mg/dL HDL Cholesterol mg/dL 05/09/19 05/09/19 Range/Units 20:20 20:20 WBC (3.5-10.8) 10^3/uL RBC (3.70-4.87) 10^6 /uL Hgb (12.0-16.0) g/dL Hct (35-47) % MCV (80-97) fL MCH (27-31) pg MCHC (31-36) g/dL RDW (10-15) % Plt Count (150-450) 10^3/uL MPV (7.4-10.4) fL Neut % (Auto) % Lymph % (Auto) % [place] % (Auto) % Eos % (Auto) % Baso % (Auto) % Absolute Neuts (auto) (1.5-7.7) 10^3/ul Absolute Lymphs (auto) (1.0-4.8) 10^3/ul Absolute Monos (auto) (0-0.8) 10^3/ul Absolute Eos (auto) (0-0.6) 10^3/ul Absolute Basos (auto) (0-0.2) 10^3/ul Absolute Nucleated RBC 10^3/ul Nucleated RBC % INR (Anticoag Therapy) (0.82-1.09) APTT (26.0-38.0) seconds Sodium 137 (135-145) mmol/L Potassium 4.1 (3.5-5.0) mmol/L Chloride 103 (101-111) mmol/L Carbon Dioxide 22 (22-32) mmol/L Anion Gap 12 H (2-11) mmol/L BUN 26 H (6-24) mg/dL Creatinine 1.29 H (0.51-0.95) mg/dL Est GFR ( Amer) 48.1 (>60) Est GFR (Non-Af Amer) 39.8 (>60) BUN/Creatinine Ratio 20.2 H (8-20) Glucose 179 H (70-100) mg/dL POC Glucose (mg/dL) (70-100) mg/dL Lactic Acid 1.5 (0.5-2.0) mmol/L Calcium 9.1 (8.6-10.3) mg/dL Total Bilirubin 0.50 (0.2-1.0) mg/dL AST 27 (13-39) U/L ALT 21 (7-52) U/L Alkaline Phosphatase 124 H (34-104) U/L Troponin I 0.01 (<0.04) ng/mL Total Protein 6.7 (6.4-8.9) g/dL Albumin 4.2 (3.2-5.2) g/dL Globulin 2.5 (2-4) g/dL Albumin/Globulin Ratio 1.7 (1-3) Triglycerides 146 mg/dL Cholesterol 254 mg/dL LDL Cholesterol 131 mg/dL HDL Cholesterol 94.0 mg/dL Microbiology and Other Data: Microbiology 05/09/19 20:30 Stool Occult Blood (PAULINA) - Final Stool Assess/Plan/Problems-Billing Assessment: 78 yo f with h/o ischemic colitis in 2012 and 2014 presents with AMS -transient(? near syncope) and BRBPR-colonoscopy shows severe ischemic colitis - Patient Problems (1) Altered mental state Comment: transient: TIA vs near syncope Cont Telem Echo shows EF 70%, negative bubble Carotid US shows no significant stenosis suspect pt's symptoms were near syncope related (2) Ischemic colitis Comment: d/c Dr. Medley: CTA abd unremarkable -cont IVF to 150 ml/hr -cont Zosyn started by GI and cont on PO antibiotics afterwards to complete 10 day course (3) HTN (hypertension) Comment: -cont Norvasc, lopressor, ramipril (4) Acute lower GI bleeding Comment: due to ischemic colitis cont to monitor CBC daily So far Hb fairly stable cont IV Protonix Q12H for now (5) LUCIAN (acute kidney injury) Comment: resolved with IVF (6) DVT prophylaxis Comment: SCD's, no anticoagulants due to GI bleed Status and Disposition: inpatient
[2019-05-11] MEDS: NS 0.9% 1000 ML** 1,000 ML IV SCH (20:19)
--- NOTE | 2019-05-11 22:30 | PRO ---
CC: Dr. Dallas Bob * FLEXIBLE SIGMOIDOSCOPY REPORT: DATE OF PROCEDURE: 05/10/19 PRIMARY CARE PHYSICIAN: Dallas Bob MD. INDICATION FOR PROCEDURE: Hematochezia. PROCEDURE PERFORMED: Flexible sigmoidoscopy to the distal transverse colon with biopsies. MEDICATIONS GIVEN: None. DESCRIPTION OF PROCEDURE: After the flexible sigmoidoscopy procedure, including the risks, benefits, and alternatives, with the risks not limited to, perforation, surgery, missed lesions, and/or were explained to the patient , written informed consent was obtained. IV medication was given and a rectal exam was performed. The rectal exam did reveal some scant bleeding. The pediatric Olympus colonoscope was then inserted into the patient's rectum and advanced to about the distal transverse colon. Ischemic colitis was noted from 20 to 35 cm with abrupt ending at that point and then normal mucosa visualized beyond. There was some evidence of old blood in this area. I did take biopsies throughout. I would characterize this as moderate to severe in intensity. The scope was then returned to the rectum. Direct views in this area were normal. On retroflexion, the views were normal as well. The scope was then removed from the patient. She tolerated the procedure well. She returned to the recovery room in stable condition. IMPRESSION: 1. Complete flexible sigmoidoscopy to the distal transverse colon. 2. Ischemic colitis from 20 to 35 cm, biopsied. 3. Otherwise normal flexible sigmoidoscopy of the area visualized. 4. Good prep. RECOMMENDATIONS: She has recurrence of ischemic colitis to this area. She does not really have a prodrome of hypotension prior to this. I would like to check a CTA to make sure there is no significant vascular stenosis of this area. She should also have a full workup for embolic phenomenon including an outpatient Holter monitoring through Cardiology to rule out AFib. She does have occasional PACs and PVCs on telemetry. I would like to certainly make sure that she does not have evidence of paroxysmal AFib and she should follow up with Cardiology as an outpatient. In terms of her ischemic colitis, I would recommend Zosyn for about 48 hours' time. She can have clear and full liquids after 24 to 48 hours if remaining stable and abdominal exam is benign. Diet can be rapidly advanced and she could be discharged on a total of 10 days of antibiotics. She will need a repeat colonoscopy in about 4 to 5 weeks to ensure resolution. [id number]/[facility] #: [id number] [facility]
[2019-05-12] MEDS: NS 0.9% 1000 ML** 1,000 ML IV SCH (02:27)
[2019-05-12] MEDS: ZOSYN 3.375 GM Q8H per EXTENDED INFUSION IVPB SCH ×4 (03:41→12:02)
[2019-05-12 06:01] LABS: Hematocrit 39 % (35-47); Hemoglobin 12.9 g/dL (12.0-16.0); Mean Corpuscular HGB Conc 33 g/dL (31-36); Mean Corpuscular Hemoglobin 32 pg (27-31); Mean Corpuscular Volume 97 fL (80-97); Mean Platelet Volume 7.4 fL (7.4-10.4); Platelet Count 159 10^3/uL (150-450); Red Blood Count 3.97 10^6 /uL (3.70-4.87); Red Cell Distribution Width 13 % (10-15); White Blood Count 3.9 10^3/uL (3.5-10.8)
[2019-05-12 06:19] LABS: BUN/Creatinine Ratio 11.2 (8-20); Calcium 8.3 mg/dL (8.6-10.3); EGFR African American 73.8 (>60); Magnesium 1.9 mg/dL (1.9-2.7); Potassium 4.1 mmol/L (3.5-5.0)
[2019-05-12] MEDS: amLODIPine TAB* 5 MG PO SCH (09:30)
[2019-05-12] MEDS: Pantoprazole IV* 40 MG IV SCH (09:30)
[2019-05-12] MEDS: Cholecalciferol TAB* 400 UNIT PO SCH (09:30)
[2019-05-12] MEDS: Calcium/Vitamin D TAB 250/125* TAB PO SCH (09:31)
[2019-05-12] MEDS: Multivitamins/Minerals TAB PO SCH (09:31)
[2019-05-12] MEDS: Vitamin B Complex TAB PO SCH (09:32)
[2019-05-12] MEDS: Ramipril CAP* 10 MG PO SCH (09:32)
[2019-05-12] MEDS: Metoprolol Succinate XL TAB* 50 MG PO SCH (09:32)
[2019-05-12] MEDS: Magnesium Oxide TAB* 400 MG PO SCH (09:32)
[2019-05-12] MEDS: AMOXAPINE PO SCH (09:35)
[2019-05-12] MEDS: Acetaminophen TAB* 325 MG PO PRN (09:45)
[2019-05-12 11:39] VITALS: BP 143/83
--- NOTE | 2019-05-12 20:54 | DS ---
CC: Dr. Bob; Dr. Medley * DISCHARGE SUMMARY: DATE OF ADMISSION: 05/09/19 DATE OF DISCHARGE: 05/12/19 PRIMARY CARE PROVIDER: Dr. Bob. DISPOSITION AT DISCHARGE: Discharged to home. CONDITION AT DISCHARGE: Stable. DISCHARGE DIAGNOSIS: Acute gastrointestinal bleed due to acute ischemic colitis. SECONDARY DIAGNOSES: 1. History of recurrent ischemic colitis episodes, there was an episode noted in 2014 and this time. 2. History of asthma. 3. Hypertension. 4. Rheumatoid arthritis. 5. Osteoarthritis. 6. Thyroid nodules. 7. Depression. MEDICATIONS: At home include: 1. Augmentin 875 mg p.o. b.i.d. for a total of 7 days and stop. The remaining medications are unchanged and include: 1. Albuterol inhaler on a p.r.n. basis. 2. Norvasc 7.5 mg daily. 3. Amoxapine 25 mg daily. 4. Aspirin 81 mg daily. 5. Calcium with vitamin D3 1 tablet daily. 6. Vitamin D 800 units daily. 7. Mag-Ox 400 mg daily. 8. Metoprolol succinate 50 mg b.i.d. 9. Multivitamin 1 tablet daily. 10. Omeprazole 20 mg daily. 11. Ramipril 10 mg daily. 12. Aldactone 25 mg daily. 13. Vitamin B 1 capsule daily. LABORATORY DATA AND STUDIES PERFORMED DURING THE HOSPITAL STAY: On 05/12/19, white blood cell count of 3.9, hemoglobin of 12.9, hematocrit of 39, and platelets of 159. Sodium of 139, potassium 4.1, chloride 109, carbon dioxide 26 , BUN 10, creatinine 0.89, the patient's creatinine on admission was 1.29. The patient's cholesterol profile showed triglycerides of 146, total cholesterol of 224, LDL of 131, HDL of 94. CONSULTATIONS DURING THE HOSPITAL STAY: Included Dr. Medley from Gastroenterology. PROCEDURES PERFORMED: Included sigmoidoscopy performed by Dr. Medley on with impression: "Complete flexible sigmoidoscopy to the distal transverse colon. Ischemic colitis from 20 to 35 cm, biopsied. Otherwise, normal flexible sigmoidoscopy of the area visualized. Good prep." Pathology from the colon biopsy is pending at the time of dictation. CT angiogram of the abdomen and pelvis obtained on 05/10/19, impression: "No evidence of abdominal aortic aneurysm. No evidence of superior mesenteric artery stenosis. Diffuse wall thickening of the descending and sigmoid colon consistent with colitis. [id number]-[id number] amount of free fluid is noted in the pelvis. Locally advanced degenerative disk disease is noted." Transthoracic echocardiogram obtained on 05/10/19 showed "EF of 70% to 75% with negative bubble study and no significant valvular abnormalities." Please note the patient was on telemetry monitored bed during her hospital stay and apart from occasional PVCs, no other abnormalities are noted. HOSPITALIZATION COURSE: Jeanie Fernández is an 78-year-old female with a history of recurrent colitis, who presented to the hospital complaining of an episode of feeling out of sorts and near syncopal and problems with speech. That was followed by an episode of bloody diarrhea. The patient was evaluated in the ED. Initially, she was admitted for possibility of TIA, but later on it appeared to be more related to near syncope when the patient started developing ischemic colitis. The patient's CT of the abdomen and pelvis was noted as above. It did not show any vascular stenosis. Dr. Medley saw the patient in consultation and performed a sigmoidoscopy, which showed ischemic colitis. Pathology is still pending. Dr. Medley recommended the patient to be on Zosyn and intravenous fluids which was continued throughout the hospital stay. The patient continued to be on telemetry monitored bed without evidence of any arrhythmias. Transthoracic echocardiogram did not show any possibility of cardioembolic disease. Bubble study was negative. The patient did very well throughout her hospital stay, and by the time of discharge, she is able to tolerate regular diet. Nevertheless, she was recommended to follow up with next 3 days of soft diet and then advance as tolerated. She is going to be continued on Augmentin for the next 7 days to complete a 10-day treatment with antibiotics. As per Dr. Medley's report, the patient's ischemic colitis was rather severe. Apart from additional antibiotics, her remaining medications including aspirin are unchanged from admission. The patient's GI bleed resolved 24 hours prior to her discharge and her hemoglobin remained rather stable throughout her hospital stay. PHYSICAL EXAM AT THE TIME OF DISCHARGE: Blood pressure of 143/83, heart rate of 70 and regular, respiratory rate 18, oxygen saturation 100% on room air, temperature 97.5. General: The patient is a very pleasant 78-year-old female who is in no acute distress, alert, awake, and oriented x3. HEENT: Head: Atraumatic, normocephalic. Eyes: Pupils are equal, reactive to light and accommodation. Oropharynx is clear. Mucosa moist. Neck: Supple. No JVD. No bruits bilaterally. Cardiovascular: Regular rate and rhythm. No murmur. Respiratory: Clear to auscultation bilaterally. Abdomen: Soft, nontender. Bowel sounds are present in all 4 quadrants. Extremities: There is no edema. Pulses are +2 bilaterally. There is no clubbing or cyanosis. Neuro Evaluation : Speech clear. Cranial nerves II through XII grossly intact. Motor strength is 5/5 bilaterally. Please note that Dr. Medley also recommended for the patient to have cardiac monitoring for arrhythmias. Please note that the patient had over 3 days of telemetry monitoring with no evidence of arrhythmia. Nevertheless, she is recommended to discuss with Dr. Bob the possibility of further monitoring and that would probably be best served by event monitoring set up by our cardiology office if that was still deemed to be necessary. The patient is recommended to follow up with Dr. Bob in approximately 4 to 7 days. Please note that this is a short summary of the patient's hospital stay. Please refer to further medical records for details. TIME SPENT: Approximately 45 minutes was spent on the patient's discharge. [id number]/[facility] #: [id number] [facility]
== END 2019-05-12 13:00 | disposition home or self-care (01) | DRG 394 ==
LOC: ED 19:39 → MEDTELE 23:27
PROVIDERS: ADMIT Internal Medicine; ATTEND Internal Medicine
PROC: 0DDN8ZX Extraction of Sigmoid Colon, Via Natural or Artificial Opening Endoscopic, Diagnostic (ICD-10-PCS; principal; 2019-05-10)
DX: K55.039 Acute (reversible) ischemia of large intestine, extent unspecified (principal); N17.9 Acute kidney failure, unspecified; D62 Acute posthemorrhagic anemia; K92.1 Melena; J45.909 Unspecified asthma, uncomplicated; I10 Essential (primary) hypertension; M06.9 Rheumatoid arthritis, unspecified; M19.90 Unspecified osteoarthritis, unspecified site; E04.1 Nontoxic single thyroid nodule; F32.9 Major depressive disorder, single episode, unspecified; I49.3 Ventricular premature depolarization; E78.5 Hyperlipidemia, unspecified; K21.9 Gastro-esophageal reflux disease without esophagitis; E86.0 Dehydration; Z96.641 Presence of right artificial hip joint; Z79.899 Other long term (current) drug therapy; Z88.8 Allergy status to other drugs, medicaments and biological substances; Z88.1 Allergy status to other antibiotic agents; Z91.030 Bee allergy status; Z91.018 Allergy to other foods
CPT/HCPCS: 36415; 70450; 71045; 74174; 80048; 80053; 80061; 81003; 82272; 83605; 83735; 84484; 85025; 85027; 85610; 85730; 86850; 86900; 86901; 87045; 87046; 87077; 87899; 88305; 93005; 93306; 93880; 96374; 99285; A9270-GY; J2250; J2543; J3010; J3475; Q9967

== ENCOUNTER 2019-06-12 14:29 | Emergency (ER) | payer MEDICARE ==
[2019-06-12 20:04] LABS: ABS Eosinophils 0.2 10^3/ul (0-0.6); ABS Monocytes 0.5 10^3/ul (0-0.8); ABS Neutrophils 2.9 10^3/ul (1.5-7.7); Eosinophil % 4.7 %; Hematocrit 39 % (35-47); Hemoglobin 13.5 g/dL (12.0-16.0); Lymphocyte % 21.2 %; Mean Corpuscular HGB Conc 34 g/dL (31-36); Mean Corpuscular Hemoglobin 33 pg (27-31); Mean Corpuscular Volume 95 fL (80-97); Mean Platelet Volume 7.6 fL (7.4-10.4); Platelet Count 203 10^3/uL (150-450); Red Blood Count 4.11 10^6 /uL (3.70-4.87); Red Cell Distribution Width 13 % (10-15); White Blood Count 4.6 10^3/uL (3.5-10.8)
[2019-06-12 20:17] LABS: Activated Partial Thrombo Time 30.3 seconds (26.0-38.0); INR 0.91 (0.82-1.09)
[2019-06-12 20:20] LABS: Albumin 4.1 g/dL (3.2-5.2); Albumin/Globulin Ratio 1.6 (1-3); BUN/Creatinine Ratio 20.2 (8-20); Calcium 9.3 mg/dL (8.6-10.3); EGFR African American 61.7 (>60); Globulin 2.6 g/dL (2-4); Potassium 4.3 mmol/L (3.5-5.0); Total Bilirubin 0.5 mg/dL (0.2-1.0); Total Protein 6.7 g/dL (6.4-8.9)
--- NOTE | 2019-06-12 20:36 | ED ---
GI/ HPI - HPI Summary HPI Summary: Patient is an 78 y/o F presenting to the ED for a chief complaint of black stool and rectal bleeding. Patient notes that her symptoms began with diarrhea on 06/10/19 around 14:30 with left-sided abdominal pain that has since resolved. On 06/11/19, she noticed some rectal bleeding, and on 06/12/19, she had a bowel movement with black stool. She has not had a bowel movement since the episode of black stool. Patient denies fever, positive sick contact, or recent travel. She denies any aggravating or alleviating factors. She admits a previous visit to [facility] in April 2019 when she was prescribed a 7 day course of antibiotics which she has since completed. PMHx is significant for arthritis and HTN for which she takes medication. PSHx is significant for hip replacement. - History of Current Complaint Chief Complaint: EDGIBleed Time Seen by Provider: 06/12/19 20:21 Stated Complaint: BLACK STOOL/WITH BLOOD THIS MORNING PER PT Hx Obtained From: Patient Onset/Duration: Started Days Ago - 06/10/19, Atraumatic, Resolved Timing: Lasting Days - 06/10/19 Severity: Moderate Current Severity: Moderate Pain Intensity: 0 Location of Pain: Other - Left-sided, resolved Associated Signs and Symptoms: Positive: Black Tarry Stool, Abdominal Pain - Resolved, Other: - Positive rectal bleeding. Negative: Fever Aggravating Factor(s): Nothing Alleviating Factor(s): Nothing - Additional Pertinent History Primary Care Physician: [id number] - Allergy/Home Medications Allergies/Adverse Reactions: Allergies Allergy/AdvReac Type Severity Reaction Status Date / Time almond Allergy Anaphylatic Verified 05/11/19 08:34 Shock almond oil Allergy Anaphylatic Verified 05/11/19 08:34 Shock bee venom protein (honey bee) Allergy Unknown Verified 05/09/19 20:21 Reaction Details cefuroxime Allergy Hives Verified 05/10/19 15:28 chocolate flavor Allergy Hives Verified 05/09/19 20:21 ciprofloxacin [From Cipro] Allergy Hives Verified 05/09/19 20:21 diazepam Allergy Hallucinati Verified 05/09/19 20:21 ons diltiazem Allergy Hives Verified 05/09/19 20:21 ezetimibe Allergy Hives Verified 05/09/19 20:21 niacin Allergy Hives Verified 05/09/19 20:23 pravastatin Allergy Hives Verified 05/09/19 20:23 valsartan Allergy Hives Verified 05/09/19 20:23 wheat Allergy Hives Verified 05/09/19 20:23 PMH/Surg Hx/FS Hx/Imm Hx Previously Healthy: Yes Endocrine/Hematology History: Denies: Hx Diabetes, Hx Systemic Lupus Erythematosus, Hx Anemia Cardiovascular History: Reports: Hx Hypercholesterolemia, Hx Hypertension, Other Cardiovascular Problems/Disorders - "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 Denies: Hx Jaundice History: Denies: Hx Dialysis, Hx Renal Disease Musculoskeletal History: Reports: Hx Arthritis, Hx Rheumatoid Arthritis, Hx Back Problems - chronic pain, Hx Osteoporosis Sensory History: Reports: Hx Cataracts - surgery completed in October, Hx Contacts or Glasses Denies: Hx Legally Blind, Hx Deafness, Hx Hearing Aid Opthamlomology History: Reports: Hx Cataracts - surgery completed in October, Hx Contacts or Glasses Denies: Hx Legally Blind EENT History: Denies: Hx Deafness - Cancer History Hx Chemotherapy: No Hx Radiation Therapy: No - Surgical History Surgical History: Yes Surgery Procedure, Year, and Place: B hip replacement (december 2014). tonsillectomy (194). multiple wrist surgeries (2012) Infectious Disease History: No Infectious Disease History: Denies: Traveled Outside the [place] in Last 30 Days - Family History Known Family History: Positive: Cardiac Disease - [place] - brother - Social History Occupation: Retired Alcohol Use: None Alcohol Amount: approx 2-3 drinks daily Hx Substance Use: No Substance Use Type: Reports: None Hx Tobacco Use: Yes Smoking Status (MU): Former Smoker Have You Smoked in the Last Year: No Review of Systems Negative: Fever Positive: Abdominal Pain - With diarrhea, resolved, Diarrhea, Other - Positive black stool and rectal bleeding All Other Systems Reviewed And Are Negative: Yes Physical Exam - Summary Physical Exam Summary: Appearance: Well-appearing, Well-nourished, lying in bed comfortably Skin: Warm, dry, no obvious rash Eyes: sclera anicteric, no conjunctival pallor ENT: mucous membranes moist, pharynx appears normal Neck: Supple, nontender Respiratory: Clear to auscultation, no signs of respiratory distress Cardiovascular: Normal S1, S2. No murmurs. Normal distal pulses in tibial and radial bilaterally. Abdomen: Soft, nontender, normal active bowel sounds present Musculoskeletal: Normal, Strength/ROM Intact Neurological: A&Ox3, awake and alert, mentation is normal, speech is fluent and appropriate Psychiatric: affect is normal, does not appear anxious or depressed Rectal: May is the tar heater present for the exam. Small amount of mucousy, somewhat red stool, possibly bloody. Triage Information Reviewed: Yes Vital Signs On Initial Exam: Initial Vitals Temp Pulse Resp BP Pulse Ox 98.0 F 83 16 153/88 99 06/12/19 14:43 06/12/19 14:43 06/12/19 14:43 06/12/19 14:43 06/12/19 14:43 Vital Signs Reviewed: Yes Procedures - Sedation Patient Received Moderate/Deep Sedation with Procedure: No Diagnostics - Vital Signs Vital Signs Temp Pulse Resp BP Pulse Ox 06/12/19 19:12 97.9 F 84 18 152/90 06/12/19 16:42 97.6 F 78 16 162/94 98 06/12/19 14:43 98.0 F 83 16 153/88 99 - Laboratory Lab Results: Lab Results 06/12/19 06/12/19 06/12/19 Range/Units 19:46 19:46 19:46 WBC 4.6 (3.5-10.8) 10^3/uL RBC 4.11 (3.70-4.87) 10^6 /uL Hgb 13.5 (12.0-16.0) g/dL Hct 39 (35-47) % MCV 95 (80-97) fL MCH 33 H (27-31) pg MCHC 34 (31-36) g/dL RDW 13 (10-15) % Plt Count 203 (150-450) 10^3/uL MPV 7.6 (7.4-10.4) fL Neut % (Auto) 63.5 % Lymph % (Auto) 21.2 % [place] % (Auto) 10.1 % Eos % (Auto) 4.7 % Baso % (Auto) 0.5 % Absolute Neuts (auto) 2.9 (1.5-7.7) 10^3/ul Absolute Lymphs (auto) 1.0 (1.0-4.8) 10^3/ul Absolute Monos (auto) 0.5 (0-0.8) 10^3/ul Absolute Eos (auto) 0.2 (0-0.6) 10^3/ul Absolute Basos (auto) 0.0 (0-0.2) 10^3/ul Absolute Nucleated RBC 0.0 10^3/ul Nucleated RBC % 0.0 INR (Anticoag Therapy) 0.91 (0.82-1.09) APTT 30.3 (26.0-38.0) seconds Sodium 138 (135-145) mmol/L Potassium 4.3 (3.5-5.0) mmol/L Chloride 106 (101-111) mmol/L Carbon Dioxide 26 (22-32) mmol/L Anion Gap 6 (2-11) mmol/L BUN 21 (6-24) mg/dL Creatinine 1.04 H (0.51-0.95) mg/dL Est GFR ( Amer) 61.7 (>60) Est GFR (Non-Af Amer) 51.0 (>60) BUN/Creatinine Ratio 20.2 H (8-20) Glucose 92 (70-100) mg/dL Calcium 9.3 (8.6-10.3) mg/dL Total Bilirubin 0.50 (0.2-1.0) mg/dL AST 22 (13-39) U/L ALT 18 (7-52) U/L Alkaline Phosphatase 112 H (34-104) U/L Total Protein 6.7 (6.4-8.9) g/dL Albumin 4.1 (3.2-5.2) g/dL Globulin 2.6 (2-4) g/dL Albumin/Globulin Ratio 1.6 (1-3) Result Diagrams: 06/12/19 19:46 06/12/19 19:46 Lab Statement: Any lab studies that have been ordered have been reviewed, and results considered in the medical decision making process. GIGU Course/Dx - Course Course Of Treatment: Patient is an 78 y/o F presenting to the ED for a chief complaint of black stool and rectal bleeding. Patient notes that her symptoms began with diarrhea on 06/10/19 around 14:30 with left-sided abdominal pain that has since resolved. On 06/11/19, she noticed some rectal bleeding, and on 06/12/19, she had a bowel movement with black stool. She has not had a bowel movement since the episode of black stool. Patient denies fever, positive sick contact, or recent travel. She admits a previous visit to [facility] in April 2019 when she was prescribed a 7 day course of antibiotics which she has since completed. PMHx is significant for arthritis and HTN for which she takes medication. PSHx is significant for hip replacement. On exam, small amount of mucousy, somewhat red stool, possibly bloody. Laboratory abnormal findings: MCH 33, creatinine 1.04, BUN/Creatinine ratio 20.2, alkaline phosphatase 112. I do not think the patient has ischemic colitis due to lack of pain, normal vital signs, negative lab work, and resolution of her symptoms. Patient will be discharged with a diagnosis of diarrhea. Follow up with PCP in 2-3 days. - Diagnoses Provider Diagnoses: Diarrhea Discharge ED - Sign-Out/Discharge Documenting (check all that apply): Patient Departure - Discharge - Discharge Plan Condition: Stable Disposition: HOME Patient Education Materials: Acute Diarrhea (ED) Referrals: Dallas Bob MD [Primary Care Provider] - Additional Instructions: Your blood counts look good, so you did not lose too much blood. As the diarrhea and bleeding has appeared to stop and everything else looks good as far as your blood work and vital signs, I don't think we need to admit you to the hospital tonight. Red flags that should prompt a return would be onset of abdominal pain or return of the bleeding. - Billing Disposition and Condition Condition: STABLE Disposition: Home - Attestation Statements Document Initiated by Eunice: Yes Documenting Noryibrandall: Ayaka Olivas Provider For Whom Eunice is Documenting (Include Credential): Thanh Rivas MD Scribrandall Attestation: Ayaka Self scribed for Thanh Rivas MD on 06/13/19 at 0557. Noryibrandall Documentation Reviewed: Yes Provider Attestation: The documentation as recorded by the Ayaka trinidad accurately reflects the service I personally performed and the decisions made by me, Thanh Rivas MD Status of Scrkassandra Document: Viewed
[2019-06-12 21:03] VITALS: BP 163/91
== END 2019-06-12 20:48 | disposition home or self-care (01) ==
LOC: ED 14:29
DX: R19.7 Diarrhea, unspecified (principal); R10.9 Unspecified abdominal pain; E78.00 Pure hypercholesterolemia, unspecified; I10 Essential (primary) hypertension; Z87.891 Personal history of nicotine dependence
CPT/HCPCS: 36415; 80053; 85025; 85610; 85730; 86850; 86900; 86901; 99282

== ENCOUNTER 2022-12-23 17:03 | Inpatient (IN) ==
[2022-12-23] MEDS ORDERED: Ondansetron 4 mg VIAL 2 MG/ML 2 ml VIAL IV ONE (18:27)
[2022-12-23 18:53] LABS: ABS Lymphocytes 0.7 10^3/uL (1.0-4.8); ABS Monocytes 0.5 10^3/uL (0.0-0.9); Eosinophil % 0.6 %; Hematocrit 38.2 % (35-45); Hemoglobin 13.2 g/dL (11.5-14.3); Lymphocyte % 8.2 %; Mean Corpuscular Hemoglobin 32.4 pg (27-33); Mean Corpuscular Hgb Conc 34.5 g/dL (31-36); Mean Platelet Volume 7.6 fL (7.5-11.2); Platelet Count 303 10^3/uL (150-450); Red Blood Count 4.07 10^6/uL (3.63-4.92); Red Cell Distribution Width 14.3 % (12-17); White Blood Count 8.3 10^3/uL (3.8-11.8)
[2022-12-23 19:03] LABS: Activated Partial Thrombo Time 27.4 seconds (26.0-38.0); INR 1.07 (0.88-1.18)
[2022-12-23] MEDS ORDERED: LORazepam 2 mg VIAL 1 ml IV PUSH ONE (19:06)
[2022-12-23] MEDS ORDERED: Lorazepam PYXIS KEY PRN (19:06)
[2022-12-23 19:09] LABS: Albumin 4.2 g/dL (3.2-5.2); Albumin/Globulin Ratio 1.4 (1-3); Calcium 9.7 mg/dL (8.6-10.3); Creatinine, Serum 1.32 mg/dL (0.51-0.95); Potassium 4.3 mmol/L (3.5-5.0); Total Bilirubin 0.8 mg/dL (0.2-1.0); Total Protein 7.2 g/dL (6.4-8.9); eGFR CKD-EPI 39.8 (>60)
[2022-12-23] MEDS ORDERED: Morphine 2 MG/ML SYRINGE IV ONE (20:04)
[2022-12-23] MEDS ORDERED: Ondansetron 4 mg VIAL 2 MG/ML 2 ml VIAL IV PRN (21:23)
[2022-12-23] MEDS ORDERED: Senna TAB 8.6 mg TAB PO ONE (21:27)
[2022-12-23] MEDS ORDERED: [UNRECOGNIZED DRUG - OTHER] PO PRN (21:41)
[2022-12-23] MEDS ORDERED: Albuterol HFA INHALER 8 gm MDI INH PRN (21:41)
[2022-12-23] MEDS ORDERED: Morphine 2 MG/ML SYRINGE IV PRN (21:47)
[2022-12-23] MEDS ORDERED: Heparin 5000 UNITS/ML 1 mL VIAL SUBCUT ONE (22:00)
[2022-12-23] MEDS ORDERED: Dextran 70/Hypromellose Tears Eye Drops 15 ml BTL (for Artificials Tears) BOTH EYES PRN (22:00)
[2022-12-23] MEDS: Acetaminophen IV 1 GM/100ML 1,000 MG/100 ML BAG IV SCH (22:05)
[2022-12-23] MEDS ORDERED: methylPREDNISolone SOD SUCC 40 mg/ml 1 ml VIAL IV ONE (22:08)
[2022-12-24] MEDS: NS 0.9% 1000 ml BAG 1,000 ML IV SCH ×2 (00:41→10:35)
[2022-12-24] MEDS: Acetaminophen IV 1 GM/100ML 1,000 MG/100 ML BAG IV SCH ×4 (03:41→23:03)
[2022-12-24 06:04] LABS: ABS Lymphocytes 0.3 10^3/uL (1.0-4.8); ABS Monocytes 0.6 10^3/uL (0.0-0.9); ABS Neutrophils 7.1 10^3/uL (1.5-7.6); Eosinophil % 0.5 %; Hematocrit 35.4 % (35-45); Hemoglobin 12.1 g/dL (11.5-14.3); Lymphocyte % 4.2 %; Mean Platelet Volume 8.1 fL (7.5-11.2); Platelet Count 222 10^3/uL (150-450); Red Blood Count 3.77 10^6/uL (3.63-4.92); Red Cell Distribution Width 14.2 % (12-17)
[2022-12-24 06:21] LABS: Calcium 8.5 mg/dL (8.6-10.3); Creatinine, Serum 0.98 mg/dL (0.51-0.95); Magnesium 1.4 mg/dL (1.9-2.7); Potassium 3.8 mmol/L (3.5-5.0); eGFR CKD-EPI 56.9 (>60)
[2022-12-24] MEDS: Cholecalciferol (VIT D3) 400 units TAB PO SCH (08:08)
[2022-12-24] MEDS: Calcium/Vitamin D TAB 250/125 TAB PO SCH (08:08)
[2022-12-24] MEDS: Vitamin THERAPEUTIC TAB PO SCH (08:09)
[2022-12-24] MEDS: Lidocaine PATCH 5% PATCH TRANSDERM SCH (08:14)
[2022-12-24] MEDS ORDERED: fentaNYL 100 mcg/2 ml 50 MCG/ML VIAL ONE (17:48)
[2022-12-24] MEDS ORDERED: Midazolam 2 mg/2 ml VIAL 1 mg/ml 2 ml VIAL (2 mg) ONE (17:48)
[2022-12-24] MEDS ORDERED: Lidocaine 2% PF 5 ML VIAL ONE (17:48)
[2022-12-24] MEDS ORDERED: Rocuronium 50 mg VIAL 10 mg/ml 5 ml VIAL (50 mg) ONE (18:12)
[2022-12-24] MEDS ORDERED: Clindamycin 900 MG/50 **NS BAG 900 MG/50 ML BAG ONE (18:19)
[2022-12-24] MEDS ORDERED: Phenylephrine 40 mcg/mL 10mL (400mcg) SYRINGE ONE (19:06)
[2022-12-24] MEDS ORDERED: Dexamethasone IV 4 MG/ML VIAL 1 ml VIAL ONE (19:08)
[2022-12-24] MEDS ORDERED: Bupivacaine 0.5% W/EPI SDV 10 ML VIAL INJ ONE (19:43)
[2022-12-24] MEDS ORDERED: Acetaminophen IV 1 GM/100ML 1,000 MG/100 ML BAG IV ONE (19:52)
[2022-12-24] MEDS ORDERED: Naloxone 0.4 mg VIAL 0.4 mg/ml 1 ml VIAL IV PRN (20:15)
[2022-12-24] MEDS ORDERED: fentaNYL 100 mcg/2 ml 50 MCG/ML VIAL IV PRN (20:15)
[2022-12-24] MEDS ORDERED: Vancomycin 1,000 MG VIAL ONE (20:17)
[2022-12-24] MEDS ORDERED: Ondansetron 4 mg VIAL 2 MG/ML 2 ml VIAL ONE (20:36)
[2022-12-25] MEDS: Clindamycin 600 MG/D5W BAG IV SCH ×3 (01:46→18:13)
[2022-12-25] MEDS: Acetaminophen IV 1 GM/100ML 1,000 MG/100 ML BAG IV SCH ×4 (03:00→21:53)
[2022-12-25 05:55] LABS: ABS Lymphocytes 0.2 10^3/uL (1.0-4.8); ABS Monocytes 0.4 10^3/uL (0.0-0.9); ABS Neutrophils 9.2 10^3/uL (1.5-7.6); ABS Nucleated RBC 0.01 10^3/ul; Hematocrit 31.8 % (35-45); Lymphocyte % 2.3 %; Mean Corpuscular Hemoglobin 32.9 pg (27-33); Mean Corpuscular Hgb Conc 34.6 g/dL (31-36); Mean Corpuscular Volume 95.2 fL (80-97); Mean Platelet Volume 7.9 fL (7.5-11.2); Nucleated Red Blood Cells % 0.1 /100 WBC (0.0-0.4); Platelet Count 221 10^3/uL (150-450); Red Blood Count 3.34 10^6/uL (3.63-4.92); Red Cell Distribution Width 14.1 % (12-17); White Blood Count 9.9 10^3/uL (3.8-11.8)
[2022-12-25 06:20] LABS: Albumin 3.2 g/dL (3.2-5.2); Albumin/Globulin Ratio 1.3 (1-3); Calcium 7.9 mg/dL (8.6-10.3); Creatinine, Serum 0.88 mg/dL (0.51-0.95); Globulin 2.4 g/dL (2-4); Potassium 4.2 mmol/L (3.5-5.0); Total Bilirubin 0.8 mg/dL (0.2-1.0); Total Protein 5.6 g/dL (6.4-8.9); eGFR CKD-EPI 64.8 (>60)
[2022-12-25 07:22] LABS: Urine Appearance Cloudy; Urine Bilirubin Negative (Negative); Urine Blood 1+ (Negative); Urine Color Yellow; Urine Glucose Negative (Negative); Urine Ketones 1+ (Negative); Urine Nitrite Negative (Negative); Urine Protein Negative (Negative); Urine Specific Gravity 1.026 (1.002-1.030); Urine Urobilinogen Negative (Negative)
[2022-12-25 08:00] LABS: Urine Bacteria 3+ (Absent); Urine Red Blood Cell 2+(6-10/hpf) (Absent); Urine White Blood Cell 3+(>20/hpf) (Absent)
[2022-12-25] MEDS: Lidocaine PATCH 5% PATCH TRANSDERM SCH (09:36)
[2022-12-25] MEDS: Polyethylene Glycol 3350 17 GM PACKET PO PRN (09:37)
[2022-12-25] MEDS: Cholecalciferol (VIT D3) 400 units TAB PO SCH (09:40)
[2022-12-25] MEDS: Calcium/Vitamin D TAB 250/125 TAB PO SCH (09:40)
[2022-12-25] MEDS: Vitamin THERAPEUTIC TAB PO SCH (09:40)
[2022-12-25] MEDS: Enoxaparin 40 MG/0.4 ML SYR SUBCUT SCH (09:46)
[2022-12-25] MEDS: NS 0.9% 1000 ml BAG 1,000 ML IV SCH (09:58)
[2022-12-25] MEDS ORDERED: Morphine 2 MG/ML SYRINGE IV PRN (14:28)
[2022-12-25] MEDS: Senna TAB 8.6 mg TAB PO PRN (21:45)
[2022-12-26] MEDS: NS 0.9% 1000 ml BAG 1,000 ML IV SCH (01:00)
[2022-12-26] MEDS: Acetaminophen IV 1 GM/100ML 1,000 MG/100 ML BAG IV SCH ×4 (03:28→23:05)
[2022-12-26 05:37] LABS: ABS Lymphocytes 0.5 10^3/uL (1.0-4.8); ABS Monocytes 0.7 10^3/uL (0.0-0.9); ABS Neutrophils 6.5 10^3/uL (1.5-7.6); Eosinophil % 0.2 %; Hematocrit 25.5 % (35-45); Hemoglobin 8.9 g/dL (11.5-14.3); Lymphocyte % 6.7 %; Mean Corpuscular Hemoglobin 33.1 pg (27-33); Mean Corpuscular Hgb Conc 34.9 g/dL (31-36); Mean Corpuscular Volume 94.9 fL (80-97); Mean Platelet Volume 7.5 fL (7.5-11.2); Platelet Count 194 10^3/uL (150-450); Red Blood Count 2.68 10^6/uL (3.63-4.92); Red Cell Distribution Width 14.3 % (12-17); White Blood Count 7.8 10^3/uL (3.8-11.8)
[2022-12-26 05:54] LABS: Albumin 2.8 g/dL (3.2-5.2); Albumin/Globulin Ratio 1.3 (1-3); Calcium 7.7 mg/dL (8.6-10.3); Creatinine, Serum 1.01 mg/dL (0.51-0.95); Globulin 2.2 g/dL (2-4); Potassium 4.2 mmol/L (3.5-5.0); Total Bilirubin 0.7 mg/dL (0.2-1.0); eGFR CKD-EPI 54.9 (>60)
[2022-12-26] MEDS: Vitamin THERAPEUTIC TAB PO SCH (09:31)
[2022-12-26] MEDS: Calcium/Vitamin D TAB 250/125 TAB PO SCH (09:31)
[2022-12-26] MEDS: Enoxaparin 40 MG/0.4 ML SYR SUBCUT SCH (09:32)
[2022-12-26] MEDS: Cholecalciferol (VIT D3) 400 units TAB PO SCH (09:32)
[2022-12-26] MEDS: Lidocaine PATCH 5% PATCH TRANSDERM SCH (09:36)
[2022-12-26] MEDS: Senna TAB 8.6 mg TAB PO PRN (09:41)
[2022-12-26] MEDS: cefTRIAXone 1 gm/50 mL D5W 1 GM/50 ML BAG IV SCH (13:32)
[2022-12-26] MEDS: Polyethylene Glycol 3350 17 GM PACKET PO PRN (15:09)
[2022-12-27] MEDS: Acetaminophen IV 1 GM/100ML 1,000 MG/100 ML BAG IV SCH ×4 (03:50→23:27)
[2022-12-27 06:00] LABS: ABS Eosinophils 0.1 10^3/uL (0.0-0.5); ABS Lymphocytes 0.4 10^3/uL (1.0-4.8); ABS Monocytes 0.5 10^3/uL (0.0-0.9); ABS Neutrophils 7.7 10^3/uL (1.5-7.6); ABS Nucleated RBC 0.01 10^3/ul; Eosinophil % 0.8 %; Hemoglobin 10.1 g/dL (11.5-14.3); Mean Corpuscular Hemoglobin 32.9 pg (27-33); Mean Corpuscular Hgb Conc 34.7 g/dL (31-36); Mean Corpuscular Volume 94.9 fL (80-97); Mean Platelet Volume 8.1 fL (7.5-11.2); Nucleated Red Blood Cells % 0.1 /100 WBC (0.0-0.4); Platelet Count 245 10^3/uL (150-450); Red Blood Count 3.05 10^6/uL (3.63-4.92); Red Cell Distribution Width 14.1 % (12-17); White Blood Count 8.6 10^3/uL (3.8-11.8)
[2022-12-27 06:21] LABS: Calcium 8.5 mg/dL (8.6-10.3); Creatinine, Serum 0.92 mg/dL (0.51-0.95); Potassium 3.8 mmol/L (3.5-5.0); eGFR CKD-EPI 61.4 (>60)
[2022-12-27] MEDS: Enoxaparin 40 MG/0.4 ML SYR SUBCUT SCH (07:42)
[2022-12-27] MEDS: Lidocaine PATCH 5% PATCH TRANSDERM SCH (07:43)
[2022-12-27] MEDS: Vitamin THERAPEUTIC TAB PO SCH (07:46)
[2022-12-27] MEDS: Calcium/Vitamin D TAB 250/125 TAB PO SCH (07:47)
[2022-12-27] MEDS: Cholecalciferol (VIT D3) 400 units TAB PO SCH (07:48)
[2022-12-27] MEDS: cefTRIAXone 1 gm/50 mL D5W 1 GM/50 ML BAG IV SCH (13:33)
[2022-12-28] MEDS: Acetaminophen IV 1 GM/100ML 1,000 MG/100 ML BAG IV SCH ×4 (04:57→18:14)
[2022-12-28] MEDS: Enoxaparin 40 MG/0.4 ML SYR SUBCUT SCH (08:51)
[2022-12-28] MEDS: Cholecalciferol (VIT D3) 400 units TAB PO SCH (08:51)
[2022-12-28] MEDS: Calcium/Vitamin D TAB 250/125 TAB PO SCH (08:52)
[2022-12-28] MEDS: Vitamin THERAPEUTIC TAB PO SCH (08:52)
[2022-12-28] MEDS: Lidocaine PATCH 5% PATCH TRANSDERM SCH (08:54)
[2022-12-28] MEDS: cefTRIAXone 1 GM Q24H (ADVAN) IVPB SCH (13:50)
[2022-12-29] MEDS: Acetaminophen IV 1 GM/100ML 1,000 MG/100 ML BAG IV SCH ×4 (00:29→20:40)
[2022-12-29] MEDS: Cholecalciferol (VIT D3) 400 units TAB PO SCH (08:48)
[2022-12-29] MEDS: Enoxaparin 40 MG/0.4 ML SYR SUBCUT SCH (08:48)
[2022-12-29] MEDS: Calcium/Vitamin D TAB 250/125 TAB PO SCH (08:48)
[2022-12-29] MEDS: Vitamin THERAPEUTIC TAB PO SCH (08:49)
[2022-12-29] MEDS: Lidocaine PATCH 5% PATCH TRANSDERM SCH (08:53)
[2022-12-29] MEDS: cefTRIAXone 1 GM Q24H (ADVAN) IVPB SCH (12:00)
[2022-12-30] MEDS: Acetaminophen IV 1 GM/100ML 1,000 MG/100 ML BAG IV SCH ×3 (04:26→12:35)
[2022-12-30] MEDS: Cholecalciferol (VIT D3) 400 units TAB PO SCH (09:58)
[2022-12-30] MEDS: Calcium/Vitamin D TAB 250/125 TAB PO SCH (09:58)
[2022-12-30] MEDS: Enoxaparin 40 MG/0.4 ML SYR SUBCUT SCH (09:59)
[2022-12-30] MEDS: Lidocaine PATCH 5% PATCH TRANSDERM SCH (10:00)
[2022-12-30] MEDS: Vitamin THERAPEUTIC TAB PO SCH (10:13)
[2022-12-30] MEDS: cefTRIAXone 1 GM Q24H (ADVAN) IVPB SCH (13:23)
[2022-12-31 05:46] LABS: ABS Eosinophils 0.4 10^3/uL (0.0-0.5); ABS Lymphocytes 0.5 10^3/uL (1.0-4.8); ABS Monocytes 0.5 10^3/uL (0.0-0.9); ABS Neutrophils 4.4 10^3/uL (1.5-7.6); Eosinophil % 6.5 %; Hemoglobin 9.9 g/dL (11.5-14.3); Mean Corpuscular Hgb Conc 34.1 g/dL (31-36); Mean Corpuscular Volume 93.7 fL (80-97); Mean Platelet Volume 7.7 fL (7.5-11.2); Platelet Count 273 10^3/uL (150-450); Red Blood Count 3.09 10^6/uL (3.63-4.92); Red Cell Distribution Width 14.1 % (12-17); White Blood Count 5.9 10^3/uL (3.8-11.8)
[2022-12-31 06:02] LABS: Calcium 8.5 mg/dL (8.6-10.3); Creatinine, Serum 0.85 mg/dL (0.51-0.95); eGFR CKD-EPI 67.5 (>60)
[2022-12-31] MEDS: Enoxaparin 40 MG/0.4 ML SYR SUBCUT SCH (08:54)
[2022-12-31] MEDS: Calcium/Vitamin D TAB 250/125 TAB PO SCH (08:54)
[2022-12-31] MEDS: Cholecalciferol (VIT D3) 400 units TAB PO SCH (08:54)
[2022-12-31] MEDS: Vitamin THERAPEUTIC TAB PO SCH (08:54)
[2022-12-31] MEDS: Lidocaine PATCH 5% PATCH TRANSDERM SCH (09:01)
[2023-01-01] MEDS: Triamcinolone 0.5% OINT 1 TUBE TOPICAL SCH ×4 (03:24→22:00)
[2023-01-01 08:07] LABS: ABS Eosinophils 0.3 10^3/uL (0.0-0.5); ABS Lymphocytes 0.5 10^3/uL (1.0-4.8); ABS Monocytes 0.7 10^3/uL (0.0-0.9); ABS Neutrophils 6.7 10^3/uL (1.5-7.6); Eosinophil % 4.1 %; Hematocrit 27.7 % (35-45); Hemoglobin 9.5 g/dL (11.5-14.3); Lymphocyte % 6.6 %; Mean Corpuscular Hemoglobin 32.7 pg (27-33); Mean Corpuscular Hgb Conc 34.5 g/dL (31-36); Mean Corpuscular Volume 94.8 fL (80-97); Mean Platelet Volume 7.8 fL (7.5-11.2); Platelet Count 268 10^3/uL (150-450); Red Blood Count 2.92 10^6/uL (3.63-4.92); Red Cell Distribution Width 14.3 % (12-17); White Blood Count 8.3 10^3/uL (3.8-11.8)
[2023-01-01 08:19] LABS: Creatinine, Serum 0.92 mg/dL (0.51-0.95); Potassium 4.1 mmol/L (3.5-5.0)
[2023-01-01 08:20] LABS: Albumin 2.9 g/dL (3.2-5.2); Albumin/Globulin Ratio 1.1 (1-3); Calcium 8.4 mg/dL (8.6-10.3); Globulin 2.6 g/dL (2-4); Magnesium 1.5 mg/dL (1.9-2.7); Total Bilirubin 0.5 mg/dL (0.2-1.0); Total Protein 5.5 g/dL (6.4-8.9); eGFR CKD-EPI 61.4 (>60)
[2023-01-01] MEDS ORDERED: Magnesium Sulf 4 GM/100 ML IV 4,000 MG/100 ML BAG IVPB ONE (09:01)
[2023-01-01] MEDS: Calcium/Vitamin D TAB 250/125 TAB PO SCH (10:28)
[2023-01-01] MEDS: Enoxaparin 40 MG/0.4 ML SYR SUBCUT SCH (10:28)
[2023-01-01] MEDS: Cholecalciferol (VIT D3) 400 units TAB PO SCH (10:28)
[2023-01-01] MEDS: Lidocaine PATCH 5% PATCH TRANSDERM SCH (10:34)
[2023-01-01] MEDS: Vitamin THERAPEUTIC TAB PO SCH (10:35)
[2023-01-01] MEDS ORDERED: methylPREDNISolone SOD SUCC 125 mg 2 ML VIAL IV ONE (16:45)
[2023-01-02 05:51] LABS: ABS Lymphocytes 0.4 10^3/uL (1.0-4.8); ABS Monocytes 0.1 10^3/uL (0.0-0.9); ABS Neutrophils 14.2 10^3/uL (1.5-7.6); Eosinophil % 0.1 %; Hematocrit 32.1 % (35-45); Hemoglobin 10.7 g/dL (11.5-14.3); Lymphocyte % 2.6 %; Mean Corpuscular Hemoglobin 31.3 pg (27-33); Mean Corpuscular Hgb Conc 33.5 g/dL (31-36); Mean Corpuscular Volume 93.6 fL (80-97); Mean Platelet Volume 7.9 fL (7.5-11.2); Platelet Count 365 10^3/uL (150-450); Red Blood Count 3.43 10^6/uL (3.63-4.92); Red Cell Distribution Width 14.3 % (12-17); White Blood Count 14.7 10^3/uL (3.8-11.8)
[2023-01-02 06:07] LABS: Creatinine, Serum 0.99 mg/dL (0.51-0.95); Magnesium 2.3 mg/dL (1.9-2.7); Potassium 4.7 mmol/L (3.5-5.0); eGFR CKD-EPI 56.2 (>60)
[2023-01-02] MEDS: Cholecalciferol (VIT D3) 400 units TAB PO SCH (08:41)
[2023-01-02] MEDS: Vitamin THERAPEUTIC TAB PO SCH (08:41)
[2023-01-02] MEDS: Triamcinolone 0.5% OINT 1 TUBE TOPICAL SCH ×3 (08:41→19:30)
[2023-01-02] MEDS: Calcium/Vitamin D TAB 250/125 TAB PO SCH (08:41)
[2023-01-02] MEDS: Enoxaparin 40 MG/0.4 ML SYR SUBCUT SCH (08:41)
[2023-01-02] MEDS: methylPREDNISolone SOD SUCC 40 mg/ml 1 ml VIAL IV SCH ×2 (11:04→19:42)
[2023-01-03] MEDS: methylPREDNISolone SOD SUCC 40 mg/ml 1 ml VIAL IV SCH ×2 (03:26→11:11)
[2023-01-03 06:03] LABS: ABS Lymphocytes 0.5 10^3/uL (1.0-4.8); ABS Monocytes 0.2 10^3/uL (0.0-0.9); ABS Neutrophils 16.5 10^3/uL (1.5-7.6); Hematocrit 28.5 % (35-45); Hemoglobin 9.7 g/dL (11.5-14.3); Lymphocyte % 2.7 %; Mean Corpuscular Hemoglobin 32.2 pg (27-33); Mean Corpuscular Hgb Conc 34.1 g/dL (31-36); Mean Corpuscular Volume 94.4 fL (80-97); Mean Platelet Volume 7.8 fL (7.5-11.2); Platelet Count 395 10^3/uL (150-450); Red Blood Count 3.02 10^6/uL (3.63-4.92); Red Cell Distribution Width 14.5 % (12-17); White Blood Count 17.2 10^3/uL (3.8-11.8)
[2023-01-03 06:26] LABS: Albumin 3.3 g/dL (3.2-5.2); Albumin/Globulin Ratio 1.1 (1-3); Calcium 8.7 mg/dL (8.6-10.3); Creatinine, Serum 1.19 mg/dL (0.51-0.95); Globulin 2.9 g/dL (2-4); Total Bilirubin 0.3 mg/dL (0.2-1.0); Total Protein 6.2 g/dL (6.4-8.9); eGFR CKD-EPI 45.1 (>60)
[2023-01-03] MEDS: Triamcinolone 0.5% OINT 1 TUBE TOPICAL SCH (08:33)
[2023-01-03 09:06] LABS: Rapid COVID-19 Molecular Undetected (Undetected)
[2023-01-03 10:58] VITALS: BP 108/57
== END 2023-01-03 13:10 | DRG 522 ==
LOC: ED 17:03 → EDHOLD 21:23 → SUATTDRO 21:23 → EDHOLD 22:47 → SSU 12-24 00:25
PROVIDERS: ADMIT Internal Medicine; ATTEND Internal Medicine